=== PATIENT | female | born 2000 | race Caucasian/White ===

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

== ENCOUNTER → 2020-01-17 | Outpatient (CLI) | payer MEDICAID ==
[~2020-01-17] MED LIST changes: +KETO10TA PO; +NITR-65 PO; +ONDA4TAB11 PO; +PHEN-640 PO
--- NOTE | 2020-01-17 14:05 | Diagnostic Imaging Report ---
INDICATION: Abdominal pain. COMPARISON: CT dated 12/28/2019. FINDINGS: Single supine radiographic view of the abdomen was obtained and demonstrates nondistended loops of small bowel. There is no large collection of free peritoneal air. Moderate air and stool are seen scattered throughout the colon. No unexpected extraosseous calcifications or radiopaque foreign bodies are seen. Bony structures show no gross acute abnormalities. IMPRESSION: 1. Nonobstructed small bowel gas pattern. 2. Moderate colonic air and stool. Please correlate for constipation. Dictated by: Dictated on workstation # [id number]
== END ==
LOC: RAD 13:37
PROVIDERS: ATTEND Family Medicine
DX: R10.9 Unspecified abdominal pain (principal)
CPT/HCPCS: 74018

== ENCOUNTER → 2020-02-10 | Outpatient (CLI) | payer MEDICAID ==
[2020-02-10 10:13] LABS: BILIRUBIN,URINE NEGATIVE (NEGATIVE); CLARITY,URINE CLEAR; COLOR,URINE YELLOW; GLUCOSE, URINE (UA) NEGATIVE (NEGATIVE); KETONES,URINE NEGATIVE (NEGATIVE); LEUKOCYTE ESTERASE ,URINE NEGATIVE (NEGATIVE); NITRITE,URINE NEGATIVE (NEGATIVE); PH,URINE 6.5 (5-9); PROTEIN,URINE NEGATIVE (NEGATIVE)
[2020-02-10 10:33] LABS: AMORPHOUS SEDIMENT,UR LARGE AMOR URATES /LPF; BACTERIA,URINE TRACE /HPF; RBC,URINE 0-2 /HPF; WBC,URINE RARE /HPF
--- NOTE | 2020-02-10 10:33 | Diagnostic Imaging Report ---
PROCEDURE: US Gallbladder. TECHNIQUE: Multiple real-time grayscale images were obtained over the right upper quadrant in various projections. INDICATION: Nausea and vomiting 2 months duration. FINDINGS: The gallbladder is nondilated, its wall not thickened. No pericholecystic fluid and the Mike sign was negative. Near the gallbladder neck, there is a small 3 mm hyperechoic focus adherent to the wall without shadowing. This is probably a tiny polyp or small aggregate of sludge. Gallbladder otherwise normal. No intra or extrahepatic bile duct dilatation. Visualized aorta and IVC normal. The right kidney unobstructed and normal. Liver parenchyma unremarkable. Portal vein patent. IMPRESSION: No visualized stone, there may be a small amount of sludge in the gallbladder versus tiny polyp. No definite stone or acute cholecystitis and no bile duct dilatation, ascites or right-sided hydronephrosis. Dictated by: Dictated on workstation # [id number]
== END ==
LOC: RAD 09:04
PROVIDERS: ATTEND Surgery
DX: K85.90 Acute pancreatitis without necrosis or infection, unspecified (principal); Z87.440 Personal history of urinary (tract) infections
CPT/HCPCS: 76705; 81000

== ENCOUNTER 2020-02-15 13:33 | Outpatient (RCR) | payer MEDICAID ==
[2020-03-01] MEDS ORDERED: BUSP5TAB59 PO (14:24)
[2020-03-01] MEDS ORDERED: ALPR0.5T7 PO (14:24)
[2020-03-01] MEDS ORDERED: DESO1TAB68 PO (14:24)
[2020-03-07] MEDS ORDERED: HYDR-4226 PO (09:06)
== END 2020-05-14 | disposition home or self-care (01) ==
LOC: LAB 13:33
PROVIDERS: ATTEND Surgery
DX: R19.7 Diarrhea, unspecified (principal)
CPT/HCPCS: 87015; 87045; 87046; 87324; 87328; 87329; 87449; 87899

== ENCOUNTER 2020-02-24 21:45 | Emergency (ER) | payer MEDICAID ==
[~2020-02-24] VITALS: Ht 172.7 cm; Wt 55.3 kg
[2020-02-24] MEDS ORDERED: fentaNYL INJECTION 100 MCG/2 ML AMP ONE (21:53)
[2020-02-24] MEDS ORDERED: HYOSCYAMINE 0.125 MG (LEVSIN) TAB PO ONE (22:00)
[2020-02-24] MEDS ORDERED: KETOROLAC 30 MG/ML VIAL IVP ONE (22:00)
[2020-02-24] MEDS ORDERED: fentaNYL INJECTION 100 MCG/2 ML AMP IVP ONE (22:00)
--- NOTE | 2020-02-24 22:01 | ED Abdominal Pain ---
General Stated Complaint: ABD PAIN Exam Limitations: No Limitations History of Present Illness Date Seen by Provider: Feb 24, 2020 Time Seen by Provider: 22:00 Initial Comments To ER with epigastric abdominal pain. This began a few months ago, she has had an MRI and ultrasound the gallbladder. She has an appointment with Dr. Lassiter on of this upcoming week to schedule surgery. Tonight after eating pizza about 2 hours ago the pain became worse. No fevers chills or vomiting. When discussing the eating of pizza she states "I know I'm not supposed to" Timing/Duration: Getting Worse, Intermittent Severity/Quality: Moderate Activities at Onset: None Associated Symptoms: No Fever/Chills, No Nausea/Vomiting Allergies and Home Medications Allergies Coded Allergies: Penicillins (Verified Allergy, Unknown, 07/21/16) red dye (Verified Allergy, Unknown, 03/20/15) Home Medications Ketorolac Tromethamine 10 Mg Tablet, 10 MG PO Q6H Prescribed by: MIR GUERRIER on 12/28/19448 Nitrofurantoin Monohyd/M-Cryst 100 Mg Capsule, 1 TAB PO BID Prescribed by: MIR GUERRIER on 12/28/19448 Ondansetron 4 Mg Tab.rapdis, 4 MG PO Q4H Prescribed by: MIR GUERRIER on 12/28/19448 Phenazopyridine HCl 200 Mg Tablet, 1 TAB PO TID Prescribed by: MIR GUERRIER on 12/28/19448 Patient Home Medication List Home Medication List Reviewed: Yes Review of Systems Review of Systems Constitutional: see HPI; No chills, No fever EENTM: No Symptoms Reported Respiratory: No Symptoms Reported Gastrointestinal: See HPI, Abdominal Pain Genitourinary: No Symptoms Reported Musculoskeletal: no symptoms reported Skin: no symptoms reported Psychiatric/Neurological: No Symptoms Reported Endocrine: No Symptoms Reported Past Hmjnpwp-Flnigw-Ovwuss Hx Patient Social History 2nd Hand Smoke Exposure: No Recent Foreign Travel: No Contact w/Someone Who Travel: No Recent Hopitalizations: No Immunizations Up To Date Tetanus Booster (TDap): Less than 5yrs PED Vaccines UTD: Yes Seasonal Allergies Seasonal Allergies: No Past Medical History Surgeries: Yes Tonsillectomy Respiratory: No Cardiac: No 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 0oz. 54.957545lc; 20.00 BMI Method:Actual General Appearance: WD/WN, no apparent distress, other (alert and oriented, rates pain at 8 out of 10) HEENT: PERRL/EOMI, normal ENT inspection Respiratory: no respiratory distress, no accessory muscle use Gastrointestinal: normal bowel sounds, soft, tenderness Extremities: normal range of motion, non-tender Neurologic/Psychiatric: alert, normal mood/affect, oriented x 3 Skin: normal color, warm/dry Progress/Results/Core Measures Results/Orders My Orders Orders - CARON HAAS APRN Cbc With Automated Diff (02/24/20 21:47) Comprehensive Metabolic Panel (02/24/20 21:47) Ed Iv/Invasive Line Start (02/24/20 21:47) Ketorolac Injection (Toradol Injection) (02/24/20 22:00) Hyoscyamine Sl Tablet (Levsin Sl Tablet) (02/24/20 22:00) Fentanyl Injection (Sublimaze Injection (02/24/20 22:00) Departure Impression Primary Impression: Symptomatic cholelithiasis Disposition: HOME, SELF-CARE Condition: Stable Departure-Patient Inst. Decision time for Depature: 22:04 Referrals: ELENI BUTLER MD (PCP/Family) Primary Care Physician Patient Instructions: Gallbladder Diet, Gallstones (DC) Add. Discharge Instructions: 1. Follow the gallbladder diet printed out for you. Keep your appointment with Dr. Lassiter. Return to ER for any concerns. Copy Copies To 1: NASIM LASSITER PETER J APRN Feb 24, 2020 22:01
[2020-02-24 22:02] LABS: BASOPHILS # (AUTO) 0.1 10^3/uL (0.0-0.1); BASOPHILS % (AUTO) 1 % (0-10); EOSINOPHILS # (AUTO) 0.2 10^3/uL (0.0-0.3); EOSINOPHILS % (AUTO) 2 % (0-10); HEMATOCRIT 40 % (35-52); HEMOGLOBIN 13.5 g/dL (11.5-16.0); LYMPHOCYTES # (AUTO) 4.1 10^3/uL (1.0-4.0); LYMPHOCYTES % (AUTO) 48 % (12-44); MEAN CORPUSCULAR HEMOGLOBIN 30 pg (25-34); MEAN CORPUSCULAR HGB CONC 34 g/dL (32-36); MEAN CORPUSCULAR VOLUME 88 fL (80-99); MEAN PLATELET VOLUME 9.5 fL (9.0-12.2); MONOCYTES # (AUTO) 0.5 10^3/uL (0.0-1.0); MONOCYTES % (AUTO) 6 % (0-12); NEUTROPHILS # (AUTO) 3.7 10^3/uL (1.8-7.8); NEUTROPHILS % (AUTO) 43 % (42-75); PLATELET COUNT 222 10^3/uL (130-400); WHITE BLOOD COUNT 8.6 10^3/uL (4.3-11.0)
[2020-02-24] MEDS ORDERED: RX-HYOSCYAMINE 0.125 MG SL (LEVSIN) PPK#6 SL STA (22:06)
[2020-02-24 22:12] LABS: ALBUMIN 4.1 GM/DL (3.2-4.5)
[2020-02-24 22:13] LABS: CHLORIDE 108 MMOL/L (98-107); POTASSIUM 3.8 MMOL/L (3.6-5.0); SODIUM 139 MMOL/L (135-145)
[2020-02-24 22:15] LABS: GLUCOSE 110 MG/DL (70-105); TOTAL PROTEIN 6.8 GM/DL (6.4-8.2)
[2020-02-24] MEDS ORDERED: RX-HYDROCODONE/APAP 5/325 MG #4 TAB PK PO PRN (22:15)
[2020-02-24 22:16] LABS: CARBON DIOXIDE 22 MMOL/L (21-32)
[2020-02-24 22:17] LABS: BILIRUBIN,TOTAL 0.2 MG/DL (0.1-1.0)
[2020-02-24 22:18] LABS: ALKALINE PHOSPHATASE 53 U/L (40-136)
[2020-02-24 22:19] LABS: CREATININE SERUM 0.84 MG/DL (0.60-1.30); GFR ESTIMATED > 60
[2020-02-24 22:20] LABS: BUN/CREATININE RATIO 13
[2020-02-24 22:21] LABS: ALANINE AMINOTRANSFERASE 12 U/L (0-55)
[2020-02-24 23:13] VITALS: BP 115/56
== END 2020-02-24 23:05 | disposition home or self-care (01) ==
LOC: EDUNIT# 21:45 → ER 21:47
DX: K80.20 Calculus of gallbladder without cholecystitis without obstruction (principal); Z88.0 Allergy status to penicillin; Z91.041 Radiographic dye allergy status
CPT/HCPCS: 36415; 80053; 85025; 99283

== ENCOUNTER 2020-03-05 05:35 | Outpatient (RCR) | payer MEDICAID ==
[~2020-03-05] VITALS: Ht 170 cm; Wt 56.3 kg
[~2020-03-05 05:35] MED LIST changes: +BUSP5TAB59 PO; +DESO1TAB68 PO
== END 2020-03-05 14:44 | disposition home or self-care (01) ==
LOC: PREOP 05:35
PROVIDERS: ATTEND Surgery
DX: Z01.812 Encounter for preprocedural laboratory examination (principal); Z20.828 Contact with and (suspected) exposure to other viral communicable diseases
CPT/HCPCS: 87635

== ENCOUNTER 2020-03-07 07:09 | Day surgery (SDC) | payer MEDICAID ==
[2020-03-07] VITALS (12 sets, daily range): BP systolic 109–137; BP diastolic 70–98
[~2020-03-07] VITALS: Ht 170 cm; Wt 57.0 kg
[2020-03-07] MEDS ORDERED: BUP/EPI 0.5% 1:200,000 (SENSORCAINE) 30 ML VIAL ONE (07:25)
[2020-03-07] MEDS ORDERED: IOPAMIDOL 61% 30 ML (ISOVUE 300) VIAL ONE (07:25)
[2020-03-07] MEDS ORDERED: ROCURONIUM 10 MG/ML 5 ML SYRINGE IV ONE (07:30)
[2020-03-07] MEDS ORDERED: LIDOCAINE PF 2% 5 ML (XYLOCAINE) VIAL ONE (07:30)
[2020-03-07] MEDS ORDERED: ONDANSETRON 4 MG/2 ML (SDV) Z0FRAN ONE (07:30)
[2020-03-07] MEDS ORDERED: proPOfol 200 MG/20 ML (DIPRIVAN) VIAL IV ONE (07:30)
[2020-03-07] MEDS ORDERED: fentaNYL INJECTION 100 MCG/2 ML AMP ONE ×2 (07:31→08:33)
[2020-03-07] MEDS ORDERED: MIDAZOLAM 2 MG/2 ML (VERSED) VIAL ONE (07:31)
[2020-03-07] MEDS ORDERED: GLYCOPYRROLATE 0.2 MG/ML (ROBINUL) 2 ML VIAL ONE (07:32)
[2020-03-07] MEDS ORDERED: NEOSTIGMINE 3 MG/3 ML VIAL ONE (07:32)
[2020-03-07] MEDS ORDERED: SEVOFLURANE (ULTANE) 15 ML INHAL SOLN ONE (07:32)
[2020-03-07] MEDS ORDERED: LACTATED RINGERS 1,000 ML IV PRN (07:39)
[2020-03-07] MEDS ORDERED: CLINDAMYCIN 600 MG/50 ML IVPB 50 ML IV ONE (07:45)
--- NOTE | 2020-03-07 08:17 | Progress Note-Pre Operative ---
Pre-Operative Progress Note H&P Reviewed The H&P was reviewed, patient examined and no changes noted. Time Seen by Provider: 08:11 Date H&P Reviewed: Mar 07, 2020 Time H&P Reviewed: 08:12 Pre-Operative Diagnosis: biliary dyskinesia NASIM LASSITER DO Mar 07, 2020 08:17
--- NOTE | 2020-03-07 09:05 | Progress Note-Post Operative ---
Post-Operative Progess Note Surgeon (s)/Vehicle Controls Engineer (s) Surgeon NASIM LASSITER DO Vehicle Controls Engineer: Daniel Pre-Operative Diagnosis Sludge vs polyp Post-Operative Diagnosis same pending path Procedure & Operative Findings Date of Procedure 03/07/20 Procedure Performed/Findings PROCEDURE: Laparoscopic cholecystectomy with intraoperative cholangiogram. COMPLICATIONS: None. PROCEDURE: The patient was taken to the operating suite and was prepped and draped in sterile fashion. A surgical pause was performed. Just inferior to the umbilicus, a 12 mm incision was made. Dissection was taken down to the fascia, which was then scored and grasped with a Davey and the abdomen was then entered. A 0 Vicryl suture was placed in a [id number] fashion and a Gonzalez trocar was placed and secured. Pneumoperitoneum was achieved. A 5mm trochar place in the subxyphoid and 2 in the right lower quadrant. The gallbladder was then grasped and elevated. The cystic duct, and cystic artery were then dissected out. Clip was placed on the distal portion of the cystic duct which was then partially transected. An arrow catheter was inserted into the duct. The cholangiogram was then performed. No filing defects and contrast made its way into the duodenum. Catheter removed. Clips were placed on proximal portion of the cystic duct and then the duct was then transected. Clips were placed along the proximal and distal portion of the cystic artery which was then transected. Hook cautery was used to dissect the gallbladder from the gallbladder fossa achieving hemostasis. The gallbladder was placed in an Endobag and removed through the 12 mm trocar site. The abdomen was then reinspected. Copious amounts of irrigation were used to irrigate the abdomen and there were no signs of active bleeding. Hemostasis had been achieved. The 12 mm fascial defect was then closed with 0 Vicryl suture that had been placed in a [id number] fashion. The abdomen was then desufflated, the trocars were removed. The abdomen was then washed and dried. The skin was then closed using 4-0 Monocryl in a subcuticular fashion. The abdomen was washed and dried and Skin Affix was place over incisions. Patient tolerated the procedure well without any complications and was taken to the recovery room in stable condition. Anesthesia Type GET Estimated Blood Loss Estimated blood loss (mL): scant Specimens/Packing Specimens Removed GB and contents NASIM LASSITER DO Mar 07, 2020 09:05
[2020-03-07] MEDS ORDERED: HYDR-4226 PO (09:06)
--- NOTE | 2020-03-07 09:07 | Discharge Inst-Surgical ---
Discharge Inst-Surgical Depart Medication/Instructions New, Converted or Re-Newed RX: RX Given to Pt/Family Patient Instructions Follow up Appt: Make appointment for 1 week. [phone] Instructions: No lifting greater than 20 pounds. No strenuous activity. May shower in 24 hours, no tub bath or soaking. Use incentive spirometer at home as directed. No Smoking Skin/Wound Care: May remove bandages in am. You need to leave the Dermabond on incision it will fall off on it's own. Symptoms to Report: Appetite Changes, Extremity Discoloration, Numbness/Tingling, Swelling Increased, Bleeding Excessive, Eyesight Changes, Pain Increased, Urine Color Change, Constipation(Persistent), Fever over 101 degree F, Pain/Pressure in chest, Urinating Difficulty, Cough Up/Vomit Blood, Heart Beat Irreg/Pounding, Pain/Pressure in jaw, Cramps in feet or legs, Lightheadedness, Pain/Pressure in shoulder, Diarrhea(Persistent), Memory Changes Suddenly, Questions/Concerns, Weight gain consecutive days, Dizziness/Fainting, Nausea/Vomiting, Shortness of Breath, Weight gain over 2 pounds If questions or concerns contact your physician Or seek help at emergency department. Activity Activity as Tolerated: Yes Activity Instructions: Avoid Pulling & Pushing Driving Instructions: No Driving/Refer to Diet Discharge Diet: Avoid Fatty Foods, Low Fat/Low Cholesterol Diet After 24 Hours: Clear Liquid if Nauseous If Any Problems/Questions/Issu: Contact Your Physician, Go to Emergency Room Skin/Wound Care Infection Signs and Symptoms: Increased Redness, Foul Odor of Wound, Increased Drainage, Skin Itchy or Has a Rash, Increased Swelling, Temperature Above 101 F Wound Care Comment: heating pad to shoulder or neck tonight for pain Bathing Instructions: Shower Stitches/[place]/Dermabond Dis: Dermabond Ice Pack: Ice On and Off Site NASIM LASSITER DO Mar 07, 2020 09:07
[2020-03-07] MEDS ORDERED: MEPERIDINE (DEMEROL) INJ 50 MG/ML IVP ONE (09:30)
[2020-03-07] MEDS ORDERED: fentaNYL INJECTION 100 MCG/2 ML AMP IVP ONE (09:30)
[2020-03-07] MEDS ORDERED: morphine INJ 10 MG/ML 1ML (SYR OR VIAL) IVP ONE (09:30)
[2020-03-07] MEDS ORDERED: ONDANSETRON 4 MG/2 ML (SDV) Z0FRAN IVP PRN (09:30)
--- NOTE | 2020-03-07 09:34 | Diagnostic Imaging Report ---
INDICATION: Fluoroscopy for intraoperative cholangiogram. TECHNIQUE/FINDINGS: Fluoroscopy was performed in the OR during intraoperative cholangiogram. 9 seconds of fluoroscopic time was utilized. Images demonstrate contrast being injected via the cystic duct remnant. The intrahepatic and extrahepatic bile ducts appear to be of normal caliber. No filling defects are seen to suggest retained stone. Contrast flows into the duodenum. IMPRESSION: Fluoroscopy during intraoperative cholangiogram. Dictated by: Dictated on workstation # [id number]
[2020-03-07] MEDS ORDERED: morphine INJ 10 MG/ML 1ML (SYR OR VIAL) ONE (09:36)
[2020-03-07] MEDS ORDERED: MEPERIDINE (DEMEROL) INJ 50 MG/ML ONE (09:56)
--- NOTE | 2020-03-07 11:16 | Anesthesia-General Post-Op ---
General Patient Condition Mental Status/LOC: Same as Preop Cardiovascular: Satisfactory Nausea/Vomiting: Absent Respiratory: Satisfactory Pain: Controlled Complications: Absent Post Op Complications Complications None Follow Up Care/Instructions Patient Instructions None needed. Anesthesia/Patient Condition Patient Condition Patient is doing well, no complaints, stable vital signs, no apparent adverse anesthesia problems. No complications reported per nursing. KATHI JEAN CRNA Mar 07, 2020 11:16
--- NOTE | 2020-03-07 12:16 | NUR ---
PER ROMAIN LIRIANO, PT RECIEVED A SECOND BAG OF IV FLUIDS AND HAD AN INTAKE OF AN ADDITIONAL 600 ML
== END 2020-03-07 12:00 | disposition home or self-care (01) ==
LOC: SDC 07:09
PROVIDERS: ATTEND Surgery
DX: K81.1 Chronic cholecystitis (principal); F41.9 Anxiety disorder, unspecified; F32.9 Major depressive disorder, single episode, unspecified; F95.2 Tourette's disorder; G47.9 Sleep disorder, unspecified; R19.7 Diarrhea, unspecified; K21.9 Gastro-esophageal reflux disease without esophagitis; Q80.0 Ichthyosis vulgaris; F17.290 Nicotine dependence, other tobacco product, uncomplicated; Z79.899 Other long term (current) drug therapy; Z11.2 Encounter for screening for other bacterial diseases; Z87.19 Personal history of other diseases of the digestive system; Z88.0 Allergy status to penicillin; Z88.8 Allergy status to other drugs, medicaments and biological substances; Z91.048 Other nonmedicinal substance allergy status
CPT/HCPCS: 76000; 84703; 87081; 88304

== ENCOUNTER 2020-05-09 07:00 | Emergency (ER) | payer MEDICAID ==
[~2020-05-09] VITALS: Ht 160 cm; Wt 54.0 kg
[~2020-05-09 07:00] MED LIST changes: +HYDR-4226 PO
[2020-05-09] MEDS ORDERED: ONDANSETRON 4 MG/2 ML (SDV) Z0FRAN IVP ONE (07:30)
--- NOTE | 2020-05-09 07:35 | ED Fall/Injury ---
General Chief Complaint: Lower Extremity Stated Complaint: R LEG,HIP PAIN, N/V, Nursing Triage Note: ARRIVED VIA AMB TO ROOM 06 WITH COMPLAINTS OF RIGHT LEG, HIP, AND LOWER BACK PAIN AFTER FALLING LAST NIGHT. STATES SHE IS ALSO HAVING SOME NAUSEA WITH THE PAIN. Source: patient Exam Limitations: no limitations History of Present Illness Date Seen by Provider: May 09, 2020 Time Seen by Provider: 07:20 Initial Comments This 19-year-old young lady presents to the emergency room with complaints of pain on the right chest, abdomen, and hip related to a fall last night. She fell off of a piece of gymnastics equipment from about 5 feet off the floor and landed on concrete. Her right hip took the brunt of the force. She denies any head injury or loss of consciousness. She has vomited twice since the incident and complains of persistent significant pain. She is ambulatory. On exam she has tenderness over the right anterior chest wall, the right lower quadrant, and the right iliac crest region. She also has some minor tenderness on the posterior lateral knee region. She has exacerbation of pain with coughing, sneezing, or deep breathing. Movement also is painful. Patient had a cholecystectomy in February. Allergies and Home Medications Allergies Coded Allergies: diphenhydramine (Verified Allergy, Mild, N/V, 03/07/20) Penicillins (Verified Allergy, Unknown, 03/07/20) red dye (Verified Allergy, Unknown, 03/07/20) Home Medications Alprazolam 0.5 Mg Tablet, 0.5 MG PO PRN PRN for ANXIETY, (Reported) Buspirone HCl 5 Mg Tablet, 5 MG PO DAILY, (Reported) Desogestrel-Ethinyl Estradiol 1 Each Tablet, 1 EACH PO DAILY, (Reported) Patient Home Medication List Home Medication List Reviewed: Yes Review of Systems Review of Systems Constitutional: no symptoms reported Eyes: No Symptoms Reported Ears, Nose, Mouth, Throat: no symptoms reported Respiratory: see HPI Cardiovascular: no symptoms reported Gastrointestinal: see HPI Genitourinary: no symptoms reported : No LMP: Apr 18, 2020 Musculoskeletal: see HPI Skin: other (Contusion over right iliac crest) Psychiatric/Neurological: No Symptoms Reported Past Sjzchag-Bvaemn-Zpsfta Hx Past Med/Social Hx: Reviewed Nursing Past Med/Soc Hx Patient Social History Alcohol Use: Rarely Uses Recreational Drug Use: No Smoking Status: Never a Smoker Type Used: Electronic/Vapor 2nd Hand Smoke Exposure: No Recent Foreign Travel: No Contact w/Someone Who Travel: No Recent Infectious Disease Expo: No Recent Hopitalizations: No Immunizations Up To Date Tetanus Booster (TDap): Less than 5yrs PED Vaccines UTD: Yes Seasonal Allergies Seasonal Allergies: Yes Past Medical History Surgeries: Yes Adenoidectomy, Gallbladder, Tonsillectomy Respiratory: No Cardiac: No 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) Headaches /Migraines Reproductive Disorders: No Female Reproductive Disorders: Ovarian Cyst Sexually Transmitted Disease: No HIV/AIDS: No Genitourinary: Yes Bladder Infection Gastrointestinal: Yes (N/V) Gastroesophageal Reflux, Chronic Constipation, Chronic Diarrhea, Gall Bladder Disease Musculoskeletal: No Endocrine: No HEENT: Yes (GLASSES/CONTACTS) Tonsilitis Cancer: No Psychosocial: No Sleep Difficulties, Anxiety Integumentary: Yes (ICHTHYOSIS VULGARIS) Blood Disorders: No Adverse Reaction/Blood Tranf: No (N/A) Family Medical History No Pertinent Family Hx Physical Exam Vital Signs Vital Signs - First Documented 05/09/20 07:10 Temp 37.4 Pulse 82 Resp 16 B/P (MAP) 119/83 O2 Delivery Room Air Capillary Refill : Height, Weight, BMI Height: 5'6.00" Weight: 121lbs. 0oz. 54.510820fn; 21.00 BMI Method:Actual General Appearance: WD/WN, no apparent distress, other (Mildly anxious) HEENT: PERRL/EOMI, normal ENT inspection Neck: normal inspection Cardiovascular: regular rate, rhythm, no edema, no murmur Respiratory: lungs clear, normal breath sounds, no respiratory distress, other (Anterior right lower chest wall tender to palpation) Gastrointestinal: normal bowel sounds, soft, tenderness (Right lower quadrant), other (Bruising/abrasion over the right anterior iliac crest) Extremities: no pedal edema, other (Tenderness over the right anterior hip. Mild tenderness over the posterior lateral proximal right knee) Neurologic/Psychiatric: stable helper II-XII nml as tested, no motor/sensory deficits, alert, normal mood/affect, oriented x 3, other (eye and vocal tics related to Tourette's) Skin: normal color, warm/dry, ecchymosis [place] Coma Score Best Eye Response: (4) Open Spontaneously Best Verbal Response: (5) Oriented Best Motor Response: (6) Obeys Commands [place] Total: 15 Progress/Results/Core Measures Results/Orders Lab Results Laboratory Tests Test 05/09/20 07:33 05/09/20 07:42 Range/Units White Blood Count 9.4 4.3-11.0 10^3/uL Red Blood Count 4.73 3.80-5.11 10^6/uL Hemoglobin 14.4 11.5-16.0 g/dL Hematocrit 42 35-52 % Mean Corpuscular Volume 89 80-99 fL Mean Corpuscular Hemoglobin 30 25-34 pg Mean Corpuscular Hemoglobin Concent 34 32-36 g/dL Red Cell Distribution Width 11.9 10.0-14.5 % Platelet Count 202 130-400 10^3/uL Mean Platelet Volume 10.0 9.0-12.2 fL Immature Granulocyte % (Auto) 0 % Neutrophils (%) (Auto) 29 L 42-75 % Lymphocytes (%) (Auto) 60 H 12-44 % Monocytes (%) (Auto) 6 0-12 % Eosinophils (%) (Auto) 3 0-10 % Basophils (%) (Auto) 1 0-10 % Neutrophils # (Auto) 2.8 1.8-7.8 10^3/uL Lymphocytes # (Auto) 5.6 H 1.0-4.0 10^3/uL Monocytes # (Auto) 0.6 0.0-1.0 10^3/uL Eosinophils # (Auto) 0.3 0.0-0.3 10^3/uL Basophils # (Auto) 0.1 0.0-0.1 10^3/uL Immature Granulocyte # (Auto) 0.0 0.0-0.1 10^3/uL Neutrophils % (Manual) 28 % Lymphocytes % (Manual) 55 % Monocytes % (Manual) 4 % Eosinophils % (Manual) 2 % Basophils % (Manual) 0 % Band Neutrophils 1 % Reactive Lymphocytes 10 % Blood Morphology Comment NORMAL Sodium Level 138 135-145 MMOL/L Potassium Level 3.4 L 3.6-5.0 MMOL/L Chloride Level 105 98-107 MMOL/L Carbon Dioxide Level 25 21-32 MMOL/L Anion Gap 8 5-14 MMOL/L Blood Urea Nitrogen 9 7-18 MG/DL Creatinine 0.81 0.60-1.30 MG/DL Estimat Glomerular Filtration Rate > 60 BUN/Creatinine Ratio 11 Glucose Level 98 70-105 MG/DL Calcium Level 8.6 8.5-10.1 MG/DL Corrected Calcium 8.4 L 8.5-10.1 MG/DL Total Bilirubin 0.4 0.1-1.0 MG/DL Aspartate Amino Transf (AST/SGOT) 21 5-34 U/L Alanine Aminotransferase (ALT/SGPT) 21 0-55 U/L Alkaline Phosphatase 72 40-136 U/L Total Protein 6.7 6.4-8.2 GM/DL Albumin 4.2 3.2-4.5 GM/DL Serum Test, Qualitative NEGATIVE NEGATIVE Urine Color YELLOW Urine Clarity CLEAR Urine pH 7.0 5-9 Urine Specific [place] 1.010 L 1.016-1.022 Urine Protein NEGATIVE NEGATIVE Urine Glucose (UA) NEGATIVE NEGATIVE Urine Ketones NEGATIVE NEGATIVE Urine Nitrite NEGATIVE NEGATIVE Urine Bilirubin NEGATIVE NEGATIVE Urine Urobilinogen 0.2 < = 1.0 MG/DL Urine Leukocyte Esterase NEGATIVE NEGATIVE Urine RBC (Auto) NEGATIVE NEGATIVE Urine RBC RARE /HPF Urine WBC RARE /HPF Urine Squamous Epithelial Cells 0-2 /HPF Urine Crystals NONE /LPF Urine Bacteria TRACE /HPF Urine Casts NONE /LPF Urine Mucus NEGATIVE /LPF Urine Culture Indicated NO My Orders Orders - CONNOR BUTTERFIELD MD Ed Iv/Invasive Line Start (05/09/20 07:30) Cbc With Automated Diff (05/09/20 07:30) Comprehensive Metabolic Panel (05/09/20 07:30) Hcg,Qualitative Serum (05/09/20 07:30) Ua Culture If Indicated (05/09/20 07:30) Ondansetron Injection (Zofran Injectio (05/09/20 07:30) Ct Chest/Abdomen/Pelvis W (05/09/20 07:32) Iohexol Injection (Omnipaque 350 Mg/Ml 1 (05/09/20 07:45) Received Contrast (Hold Metformin- Contr (05/09/20 07:45) Sodium Chloride Flush (Catheter Flush Sy (05/09/20 07:45) Ns (Ivpb) (Sodium Chloride 0.9% Ivpb Bag (05/09/20 07:45) Fentanyl Injection (Sublimaze Injection (05/09/20 07:45) Manual Differential (05/09/20 07:33) Medications Given in ED Current Medications Medications Dose Ordered Sig/Andre Route Start Time Stop Time Status Last Admin Dose Admin Fentanyl Citrate 50 mcg ONCE ONCE IVP 05/09/20 07:45 05/09/20 07:46 DC 05/09/20 07:42 50 MCG Iohexol 100 ml ONCE ONCE IV 05/09/20 07:45 05/09/20 07:46 DC 05/09/20 08:07 72 ML Ondansetron HCl 4 mg ONCE ONCE IVP 05/09/20 07:30 05/09/20 07:33 DC 05/09/20 07:41 4 MG Sodium Chloride 10 ml NEEDED PRN IV 05/09/20 07:45 05/09/20 08:07 10 ML Sodium Chloride 100 ml ONCE ONCE IV 05/09/20 07:45 05/09/20 07:46 DC 05/09/20 08:07 80 ML Vital Signs/I&O 05/09/20 07:10 Temp 37.4 Pulse 82 Resp 16 B/P (MAP) 119/83 O2 Delivery Room Air Progress Progress Note #1: Time: 07:40 Progress Note Patient was seen and examined. I am concerned about the mechanism of injury with a fall from 5 feet onto concrete and significant pain associated with vomiting. We discussed the risks and benefits of CT scan including radiation exposure and the possibility of identifying serious injury. Patient is agreeable to proceeding with CT scan. She is receiving fentanyl and Zofran for symptom control. Progress Note #2: Time: 08:43 Progress Note No serious injuries were identified on his CT scan. There was an incidental finding of enhancing lesion on the liver which was not seen on prior imaging. This is likely a hemangioma but should be followed up with a nonemergent ultras ound in the outpatient setting. I did discuss this with the patient. Toradol was ordered to be given prior to discharge for further pain control. Diagnostic Imaging Diagonstic Imaging: CT Plain Films/CT/US/NM/MRI: chest, abdomen, pelvis Comments CT chest, abdomen and pelvis viewed by me and report reviewed. See report below: NAME: MILLIE CHOPRA MED REC#: [id number] PT STATUS: REG ER : 2000 PHYSICIAN: CONNOR BUTTERFIELD MD ADMIT DATE: 05/09/20/ER Draft Date of Exam:05/09/20 CT CHEST/ABDOMEN/PELVIS W PROCEDURE: CT chest, abdomen, and pelvis with contrast. TECHNIQUE: Multiple contiguous axial images were obtained through the chest, abdomen, and pelvis after the administration of intravenous contrast. Auto Exposure Controls were utilized during the CT exam to meet ALARA standards for radiation dose reduction. INDICATION: Fell, chest, abdomen and pelvis pain. FINDINGS: The previous CT abdomen/pelvis without contrast exam of 12/28/2019 raise the question of cystitis. There is also small amount of nonspecific free fluid in the pelvis. On this exam, there is again a similar amount of free fluid in the pelvis. This finding is nonspecific and could be physiologic in nature. The possibility is related to recent rupture of an ovarian cyst should also be considered. If further evaluation is desired, then ultrasound would be recommended. The uterus does not appear to be enlarged. The urinary bladder is not fully distended but shows no definite abnormality. The appendix was not well-visualized but there are no indirect signs of acute appendicitis. There are a few fluid-filled segments of small bowel present. This appearance is nonspecific but could be related to a mild ileus perhaps secondary to enteritis. On the immediate postcontrast series, there is a 1.7 x 1.8 x 2.2 cm area of enhancement near the gallbladder fossa in segment IV of the liver. This is a new finding when compared to the prior CT abdomen/pelvis exam with contrast performed on 04/15/2016. This area of enhancement is not evident on the delayed series and I suspect is related to a benign cavernous hemangioma. If further study is desired, then ultrasound would be recommended. The spleen, pancreas, adrenals, kidneys, aorta and inferior vena cava and portal vein show no sign of an acute abnormality. In the interval since the prior exam, the patient has undergone a cholecystectomy. The stomach is filled with particulate matter and consequently difficult to assess. The images through the thorax show the heart size is within normal limits. The lungs are clear. There is no evidence for contusion or pneumothorax and there is no sign of pneumonia or pleural effusion. The aorta is not abnormally dilated and there is no evidence for dissection. The pulmonary arteries were not fully opacified and consequently difficult to assess for pulmonary embolus. There is no definite defect to suggest a pulmonary embolus. There is no mediastinal or hilar adenopathy. The thyroid gland where visualized is unremarkable. There is no obvious breast mass. The bone windows show no evidence for fracture or for destructive lesion. In particular, there is no sign of an acute bony abnormality of the right hip. IMPRESSION: 1. There is a small amount of nonspecific free fluid in the pelvis. Whether this finding is physiologic in nature or whether this is related to recent rupture of a small ovarian cysts is not certain. If further evaluation is desired, then ultrasound of the pelvis would be recommended. 2. The fluid in the small bowel could be secondary to a mild ileus perhaps related to enteritis. Clinical follow-up is recommended. 3. There is no acute abnormality of the chest, abdomen or pelvis noted otherwise. 4. The enhancing lesion within segment IV of the liver is most likely a benign process such as cavernous hemangioma. If further study is desired, then ultrasound would be recommended. 5. There has been an interval cholecystectomy. 6. These results were discussed Dr. Connor Butterfield. Dictated on workstation # [id number] Dict: 05/09/20815 Trans: 05/09/2036 [id number] Interpreted by: ADRIÁN THORNE MD Departure Impression Primary Impression: Other fall from one level to another as cause of accidental injury at sports or athletics area as place of occurrence Qualified Codes: W17.89XA - Other fall from one level to another, initial encounter; Y92.39 - Other specified sports and athletic area as the place of occurrence of the external cause Additional Impressions: Right sided abdominal pain Vomiting Qualified Codes: R11.2 - Nausea with vomiting, unspecified Chest wall pain Liver lesion Disposition: 01 HOME, SELF-CARE Condition: Improved Departure-Patient Inst. Decision time for Depature: 08:30 Referrals: ELENI BUTLER MD (PCP/Family) Primary Care Physician Patient Instructions: Contusion (DC) Add. Discharge Instructions: No fractures or serious internal injuries were identified. You may treat your pain with ibuprofen up to 600 mg every 6 hours as needed and/or Tylenol (acetaminophen) up to 1000 mg every 6 hours as needed. Icing and 20-minute intervals may also be helpful. Gradually increase level of activity as pain allows. Stay well-hydrated. Call or return to care if you have any further questions or concerns. You did have an abnormality seen on your liver which is likely a harmless h emangioma. However, the radiologist who read your CT is recommending you have a follow-up ultrasound performed nonemergently on an outpatient basis. Please discuss this with Dr. Butler. All discharge instructions reviewed with patient and/or family. Voiced understanding. Copy Copies To 1: ELENI BUTLER MD, JOSHUA T MD May 09, 2020 07:35
[2020-05-09 07:43] LABS: BASOPHILS # (AUTO) 0.1 10^3/uL (0.0-0.1); BASOPHILS % (AUTO) 1 % (0-10); EOSINOPHILS # (AUTO) 0.3 10^3/uL (0.0-0.3); EOSINOPHILS % (AUTO) 3 % (0-10); HEMATOCRIT 42 % (35-52); HEMOGLOBIN 14.4 g/dL (11.5-16.0); LYMPHOCYTES # (AUTO) 5.6 10^3/uL (1.0-4.0); LYMPHOCYTES % (AUTO) 60 % (12-44); MEAN CORPUSCULAR HEMOGLOBIN 30 pg (25-34); MEAN CORPUSCULAR HGB CONC 34 g/dL (32-36); MEAN CORPUSCULAR VOLUME 89 fL (80-99); MONOCYTES # (AUTO) 0.6 10^3/uL (0.0-1.0); MONOCYTES % (AUTO) 6 % (0-12); NEUTROPHILS # (AUTO) 2.8 10^3/uL (1.8-7.8); NEUTROPHILS % (AUTO) 29 % (42-75); PLATELET COUNT 202 10^3/uL (130-400); WHITE BLOOD COUNT 9.4 10^3/uL (4.3-11.0)
[2020-05-09] MEDS ORDERED: fentaNYL INJECTION 100 MCG/2 ML AMP IVP ONE (07:45)
[2020-05-09] MEDS ORDERED: NS 100 ML (IVPB) BAG IV ONE (07:45)
[2020-05-09] MEDS ORDERED: CATHETER FLUSH 10 ML SYR IV PRN (07:45)
[2020-05-09] MEDS ORDERED: HOLD METFORMIN - RECEIVED CONTRAST 20 ML VIAL IV SCH (07:45)
[2020-05-09] MEDS ORDERED: IOHEXOL 350 MG/ML 100 ML (OMNIPAQUE 350) VIAL IV ONE (07:45)
[2020-05-09 07:49] LABS: BILIRUBIN,URINE NEGATIVE (NEGATIVE); CLARITY,URINE CLEAR; COLOR,URINE YELLOW; GLUCOSE, URINE (UA) NEGATIVE (NEGATIVE); KETONES,URINE NEGATIVE (NEGATIVE); LEUKOCYTE ESTERASE ,URINE NEGATIVE (NEGATIVE); NITRITE,URINE NEGATIVE (NEGATIVE); PROTEIN,URINE NEGATIVE (NEGATIVE)
[2020-05-09 07:51] LABS: ALBUMIN 4.2 GM/DL (3.2-4.5); CHLORIDE 105 MMOL/L (98-107); POTASSIUM 3.4 MMOL/L (3.6-5.0); SODIUM 138 MMOL/L (135-145)
[2020-05-09 07:52] LABS: CALCIUM 8.6 MG/DL (8.5-10.1)
[2020-05-09 07:53] LABS: GLUCOSE 98 MG/DL (70-105)
[2020-05-09 07:54] LABS: TOTAL PROTEIN 6.7 GM/DL (6.4-8.2)
[2020-05-09 07:55] LABS: BILIRUBIN,TOTAL 0.4 MG/DL (0.1-1.0); CARBON DIOXIDE 25 MMOL/L (21-32)
[2020-05-09 07:57] LABS: ALKALINE PHOSPHATASE 72 U/L (40-136); CREATININE SERUM 0.81 MG/DL (0.60-1.30); GFR ESTIMATED > 60
[2020-05-09 07:58] LABS: BUN/CREATININE RATIO 11
[2020-05-09 08:00] LABS: ALANINE AMINOTRANSFERASE 21 U/L (0-55)
[2020-05-09 08:13] LABS: BACTERIA,URINE TRACE /HPF; RBC,URINE RARE /HPF; SQUAMOUS EPITHELIAL CELL,UR 0-2 /HPF; WBC,URINE RARE /HPF
[2020-05-09 08:34] LABS: BAND NEUTROPHILS 1 %; BASOPHILS % (MANUAL) 0 %; EOSINOPHILS % (MANUAL) 2 %; LYMPHOCYTES % (MANUAL) 55 %; MONOCYTES % (MANUAL) 4 %; NEUTROPHILS % (MANUAL) 28 %
[2020-05-09 08:35] LABS: RBC MORPH NORMAL; REACTIVE LYMPHOCYTES 10 %
--- NOTE | 2020-05-09 08:37 | Diagnostic Imaging Report ---
PROCEDURE: CT chest, abdomen, and pelvis with contrast. TECHNIQUE: Multiple contiguous axial images were obtained through the chest, abdomen, and pelvis after the administration of intravenous contrast. Auto Exposure Controls were utilized during the CT exam to meet ALARA standards for radiation dose reduction. INDICATION: Fell, chest, abdomen and pelvis pain. FINDINGS: The previous CT abdomen/pelvis without contrast exam of 12/28/2019 raise the question of cystitis. There is also small amount of nonspecific free fluid in the pelvis. On this exam, there is again a similar amount of free fluid in the pelvis. This finding is nonspecific and could be physiologic in nature. The possibility is related to recent rupture of an ovarian cyst should also be considered. If further evaluation is desired, then ultrasound would be recommended. The uterus does not appear to be enlarged. The urinary bladder is not fully distended but shows no definite abnormality. The appendix was not well-visualized but there are no indirect signs of acute appendicitis. There are a few fluid-filled segments of small bowel present. This appearance is nonspecific but could be related to a mild ileus perhaps secondary to enteritis. On the immediate postcontrast series, there is a 1.7 x 1.8 x 2.2 cm area of enhancement near the gallbladder fossa in segment IV of the liver. This is a new finding when compared to the prior CT abdomen/pelvis exam with contrast performed on 04/15/2016. This area of enhancement is not evident on the delayed series and I suspect is related to a benign cavernous hemangioma. If further study is desired, then ultrasound would be recommended. The spleen, pancreas, adrenals, kidneys, aorta and inferior vena cava and portal vein show no sign of an acute abnormality. In the interval since the prior exam, the patient has undergone a cholecystectomy. The stomach is filled with particulate matter and consequently difficult to assess. The images through the thorax show the heart size is within normal limits. The lungs are clear. There is no evidence for contusion or pneumothorax and there is no sign of pneumonia or pleural effusion. The aorta is not abnormally dilated and there is no evidence for dissection. The pulmonary arteries were not fully opacified and consequently difficult to assess for pulmonary embolus. There is no definite defect to suggest a pulmonary embolus. There is no mediastinal or hilar adenopathy. The thyroid gland where visualized is unremarkable. There is no obvious breast mass. The bone windows show no evidence for fracture or for destructive lesion. In particular, there is no sign of an acute bony abnormality of the right hip. However there does appear to be mild edema/inflammation of the subcutaneous fat over the right flank and right iliac crest. IMPRESSION: 1. There is a small amount of nonspecific free fluid in the pelvis. Whether this finding is physiologic in nature or whether this is related to recent rupture of a small ovarian cysts is not certain. If further evaluation is desired, then ultrasound of the pelvis would be recommended. 2. The fluid in the small bowel could be secondary to a mild ileus perhaps related to enteritis. Clinical follow-up is recommended. 3. There is no acute abnormality of the chest, abdomen or pelvis noted otherwise. 4. The enhancing lesion within segment IV of the liver is most likely a benign process such as cavernous hemangioma. If further study is desired, then ultrasound would be recommended. 5. There has been an interval cholecystectomy. 6. These results were discussed Dr. Connor Butterfield. Dictated by: Dictated on workstation # [id number]
[2020-05-09] MEDS ORDERED: KETOROLAC 30 MG/ML VIAL ONE (08:45)
[2020-05-09] MEDS ORDERED: KETOROLAC 30 MG/ML VIAL IVP ONE (08:45)
== END 2020-05-09 08:55 | disposition home or self-care (01) ==
LOC: EDUNIT# 07:00 → ER 07:03
DX: R10.31 Right lower quadrant pain (principal); R11.10 Vomiting, unspecified; R07.89 Other chest pain; K76.9 Liver disease, unspecified; F41.9 Anxiety disorder, unspecified; Z91.041 Radiographic dye allergy status; Z88.1 Allergy status to other antibiotic agents; Z88.8 Allergy status to other drugs, medicaments and biological substances
CPT/HCPCS: 36415; 71260; 74177; 80053; 81000; 84703; 85007; 85027

== ENCOUNTER → 2020-05-24 | Outpatient (CLI) | payer MEDICAID ==
--- NOTE | 2020-05-24 11:30 | Diagnostic Imaging Report ---
PROCEDURE: US Hepatic (Liver). TECHNIQUE: Multiple real-time grayscale images were obtained over the right upper quadrant in various projections. INDICATION: Liver mass. COMPARISON: Correlation is made with recent CT from 05/09/2020. FINDINGS: Liver is normal in size at 15 cm. There is a hypoechoic mass noted in the right lobe of the liver measuring approximately 2.4 x 1.5 x 2.3 cm, likely accounting for the mass noted on recent CT. No other liver masses are seen. Gallbladder is surgically absent. There is no biliary ductal dilatation. Pancreas is unremarkable. Aorta is nonaneurysmal. Right kidney is without calculi or hydronephrosis. IMPRESSION: Hypoechoic right lobe liver mass. This does not have the classic appearance of a hemangioma by ultrasound criteria. Exact etiology is indeterminate. Dedicated liver MRI would be recommended for better characterization. Dictated by: Dictated on workstation # [id number]
== END ==
LOC: RAD 10:09
PROVIDERS: ATTEND Family Medicine
DX: R16.0 Hepatomegaly, not elsewhere classified (principal)
CPT/HCPCS: 76705

== ENCOUNTER → 2020-06-06 | Outpatient (CLI) | payer MEDICAID ==
[~2020-06-06] MED LIST changes: +GADOBUTROL 7.5 MMOL/7.5 ML (GADAVIST) VIAL IV ONE
--- NOTE | 2020-06-06 11:15 | Diagnostic Imaging Report ---
PROCEDURE: MR imaging abdomen with and without contrast. TECHNIQUE: Multiplanar, multisequence MR imaging of the abdomen was performed with and without contrast. INDICATION: Liver mass There are no prior MRI examinations available for comparison. The CT chest, abdomen and pelvis exam of 05/09/2020 did note an enhancing lesion within segment 4 of the liver. This is felt to be related to a cavernous hemangioma. However the subsequent hepatic ultrasound exam of 05/24/2020 suggest that this lesion did not have the classic appearance for hemangioma. On this exam the lesion in question is again identified. This lesion does show some enhancement with contrast although the enhancement pattern is not entirely typical for hemangioma. Even so, I still suspect that this is a benign vascular abnormality of the liver. There is no other abnormality of the liver identified. The remainder of the abdomen itself is also unremarkable for an acute abnormality. IMPRESSION: 1. There is some enhancement of the lesion in segment 6 of the liver. The enhancement pattern however is not entirely typical for hemangioma. Even so, this is still most likely a benign vascular anomaly of the liver. I would recommend that a short-term (three-month) follow-up ultrasound exam be performed for continued evaluation. 2. There is no acute abnormality of the abdomen identified. Dictated by: Dictated on workstation # [id number]
== END ==
LOC: RAD 09:30
PROVIDERS: ATTEND Family Medicine
DX: K76.89 Other specified diseases of liver (principal)
CPT/HCPCS: 74183

== ENCOUNTER 2020-06-28 06:02 | Emergency (ER) | payer MEDICAID ==
[~2020-06-28] VITALS: Ht 170 cm; Wt 54.4 kg
[~2020-06-28 06:02] MED LIST changes: -GADOBUTROL 7.5 MMOL/7.5 ML (GADAVIST) VIAL IV ONE
--- NOTE | 2020-06-28 06:28 | ED Abdominal Pain ---
General Chief Complaint: Abdominal/GI Problems Stated Complaint: ABD PAIN Source of Information: Patient Exam Limitations: No Limitations History of Present Illness Date Seen by Provider: Jun 28, 2020 Time Seen by Provider: 06:17 Initial Comments Patient is a 19-year-old female who presents to the emergency department today with a chief complaint of abdominal pain. Patient states that she has had this pain off and on for the last several months since she had her gallbladder removed last year. Patient describes a cramping type pain that seems to be located in the right abdomen, upper and lower quadrants. Patient states she has been taking ibuprofen to try and alleviate her symptoms without much help. She endorses nausea. She has had some vomiting. She states eating makes her pain a little bit worse. She denies any black or bloody stools but occasionally has diarrhea. No symptoms, dysuria, urgency, frequency or vaginal discharge. Patient is 2 weeks post menstrual cycle. She is not on control. Patient denies daily alcohol use. No fevers or chills. Patient currently rates her pain at a "7". All other review of systems reviewed and negative except as stated. Timing/Duration: Intermittent Severity/Quality: Moderate, Cramping Location: RUQ, RLQ Radiation: No Radiation Activities at Onset: None Associated Symptoms: Nausea/Vomiting Allergies and Home Medications Allergies Coded Allergies: diphenhydramine (Verified Allergy, Mild, N/V, 06/28/20) Penicillins (Verified Allergy, Unknown, 06/28/20) red dye (Verified Allergy, Unknown, 06/28/20) Home Medications Alprazolam 0.5 Mg Tablet, 0.5 MG PO PRN PRN for ANXIETY, (Reported) Buspirone HCl 5 Mg Tablet, 5 MG PO DAILY, (Reported) Desogestrel-Ethinyl Estradiol 1 Each Tablet, 1 EACH PO DAILY, (Reported) Patient Home Medication List Home Medication List Reviewed: Yes Review of Systems Review of Systems Constitutional: see HPI EENTM: No Symptoms Reported Respiratory: No Symptoms Reported Cardiovascular: No Symptoms Reported Gastrointestinal: Abdominal Pain, Nausea, Vomiting Genitourinary: No Symptoms Reported; Denies Burning, Denies Urgency Musculoskeletal: no symptoms reported Skin: no symptoms reported All Other Systems Reviewed Negative Unless Noted: Yes Past Kmolgwg-Sofzlc-Ppsrkt Hx Patient Social History Type Used: Electronic/Vapor 2nd Hand Smoke Exposure: No Recent Hopitalizations: No Immunizations Up To Date Tetanus Booster (TDap): Less than 5yrs PED Vaccines UTD: Yes Seasonal Allergies Seasonal Allergies: Yes Past Medical History Surgeries: Yes Adenoidectomy, Gallbladder, Tonsillectomy Respiratory: No Cardiac: No 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) Headaches /Migraines Reproductive Disorders: No Female Reproductive Disorders: Ovarian Cyst Sexually Transmitted Disease: No HIV/AIDS: No Genitourinary: Yes Bladder Infection Gastrointestinal: Yes (N/V) Gastroesophageal Reflux, Chronic Constipation, Chronic Diarrhea, Gall Bladder Disease Musculoskeletal: No Endocrine: No HEENT: Yes (GLASSES/CONTACTS) Tonsilitis Cancer: No Psychosocial: No Sleep Difficulties, Anxiety Integumentary: Yes (ICHTHYOSIS VULGARIS) Blood Disorders: No Adverse Reaction/Blood Tranf: No (N/A) Family Medical History No Pertinent Family Hx Physical Exam Vital Signs Vital Signs - First Documented 06/28/20 06:10 Temp 37.5 Pulse 83 Resp 20 B/P (MAP) 119/85 (96) Pulse Ox 96 Capillary Refill : Height/Weight/BMI Height: 5'6.00" Weight: 121lbs. 0oz. 54.156285ro; 21.00 BMI Method:Actual General Appearance: WD/WN, no apparent distress HEENT: PERRL/EOMI Neck: normal inspection Respiratory: lungs clear, normal breath sounds, no respiratory distress, no accessory muscle use Cardiovascular: regular rate, rhythm, no murmur Gastrointestinal: normal bowel sounds, soft, no organomegaly, other (Mild right upper quadrant and right lower quadrant tenderness also some periumbilical tenderness. No rebound or guarding. Negative Mike sign. No pain at McBurney's point.) Extremities: normal inspection Neurologic/Psychiatric: alert, normal mood/affect, oriented x 3 Skin: normal color, warm/dry Progress/Results/Core Measures Results/Orders Lab Results Laboratory Tests Test 06/28/20 06:20 06/28/20 06:30 Range/Units Urine Color DARK YELLOW Urine Clarity CLEAR Urine pH 6.0 5-9 Urine Specific [place] 1.025 H 1.016-1.022 Urine Protein TRACE H NEGATIVE Urine Glucose (UA) NEGATIVE NEGATIVE Urine Ketones NEGATIVE NEGATIVE Urine Nitrite NEGATIVE NEGATIVE Urine Bilirubin NEGATIVE NEGATIVE Urine Urobilinogen 0.2 < = 1.0 MG/DL Urine Leukocyte Esterase NEGATIVE NEGATIVE Urine RBC (Auto) NEGATIVE NEGATIVE Urine RBC NONE /HPF Urine WBC NONE /HPF Urine Squamous Epithelial Cells 5-10 /HPF Urine Crystals PRESENT H /LPF Urine Calcium Oxalate Crystals MODERATE H /LPF Urine Bacteria TRACE /HPF Urine Casts NONE /LPF Urine Mucus SMALL H /LPF Urine Culture Indicated NO White Blood Count 7.8 4.3-11.0 10^3/uL Red Blood Count 4.56 3.80-5.11 10^6/uL Hemoglobin 14.0 11.5-16.0 g/dL Hematocrit 40 35-52 % Mean Corpuscular Volume 88 80-99 fL Mean Corpuscular Hemoglobin 31 25-34 pg Mean Corpuscular Hemoglobin Concent 35 32-36 g/dL Red Cell Distribution Width 11.6 10.0-14.5 % Platelet Count 221 130-400 10^3/uL Mean Platelet Volume 9.5 9.0-12.2 fL Immature Granulocyte % (Auto) 0 % Neutrophils (%) (Auto) 45 42-75 % Lymphocytes (%) (Auto) 44 12-44 % Monocytes (%) (Auto) 7 0-12 % Eosinophils (%) (Auto) 3 0-10 % Basophils (%) (Auto) 1 0-10 % Neutrophils # (Auto) 3.5 1.8-7.8 10^3/uL Lymphocytes # (Auto) 3.4 1.0-4.0 10^3/uL Monocytes # (Auto) 0.5 0.0-1.0 10^3/uL Eosinophils # (Auto) 0.3 0.0-0.3 10^3/uL Basophils # (Auto) 0.1 0.0-0.1 10^3/uL Immature Granulocyte # (Auto) 0.0 0.0-0.1 10^3/uL Sodium Level 138 135-145 MMOL/L Potassium Level 3.3 L 3.6-5.0 MMOL/L Chloride Level 106 98-107 MMOL/L Carbon Dioxide Level 21 21-32 MMOL/L Anion Gap 11 5-14 MMOL/L Blood Urea Nitrogen 14 7-18 MG/DL Creatinine 0.78 0.60-1.30 MG/DL Estimat Glomerular Filtration Rate > 60 BUN/Creatinine Ratio 18 Glucose Level 146 H 70-105 MG/DL Calcium Level 8.6 8.5-10.1 MG/DL Corrected Calcium 8.5 8.5-10.1 MG/DL Total Bilirubin 0.4 0.1-1.0 MG/DL Aspartate Amino Transf (AST/SGOT) 18 5-34 U/L Alanine Aminotransferase (ALT/SGPT) 16 0-55 U/L Alkaline Phosphatase 78 40-136 U/L Total Protein 6.8 6.4-8.2 GM/DL Albumin 4.1 3.2-4.5 GM/DL Lipase 42 8-78 U/L My Orders Orders - LUIS LUCIANO MD Ed Iv/Invasive Line Start (06/28/20 06:21) Cbc With Automated Diff (06/28/20 06:21) Comprehensive Metabolic Panel (06/28/20 06:21) Lipase (06/28/20 06:21) Urine Bedside (06/28/20 06:21) Ua Culture If Indicated (06/28/20 06:21) Ketorolac Injection (Toradol Injection) (06/28/20 07:15) Dicyclomine Capsule (Bentyl Capsule) (06/28/20 11:00) Vital Signs/I&O 06/28/20 06:10 Temp 37.5 Pulse 83 Resp 20 B/P (MAP) 119/85 (96) Pulse Ox 96 Progress Progress Note : Time: 06:27 Progress Note 19-year-old female with abdominal pain. Evaluation today includes a physical exam, CBC, Chem-12 lipase and urinalysis and test. Patient's exam is benign. She has diffuse tenderness to the right upper and lower quadrants without evidence of rebound or guarding. No signs of surgical abdomen are present. The patient appears comfortable in the bed/negative Mike sign. Patient has no significant tenderness at McBurney's point. She denies symptomatology. Patient does have a history of pancreatitis in the past. She is followed by her primary care doctor, Dr. Jourdan Milligan. will check these basic labs and determine disposition after laboratory evaluation. 0726 patient reevaluated, resting comfortably still has her pain. Pain medications, Toradol and Bentyl ordered. Labs have been reviewed, CBC, Chem-12 with lipase and urine and urine test are all negative. Patient is reassured that at this time she has no clinical or objective findings to warrant further investigation or CT scan. She has no evidence of an acute abdomen. No evidence of an acute surgical process is found to be present. Patient is advised to follow-up with her primary care physician, Dr. Milligan. She verbali zes understanding. She is comfortable with this plan of care. All questions are sought and answered. Patient is stable for discharge. Departure Impression Primary Impression: Abdominal pain Qualified Codes: R10.11 - Right upper quadrant pain Disposition: 01 HOME, SELF-CARE Condition: Stable Departure-Patient Inst. Decision time for Depature: 07:27 Referrals: JOURDAN MILLIGAN MD (PCP/Family) Primary Care Physician Patient Instructions: Abdominal Pain, Adult ED Add. Discharge Instructions: Eat a bland diet for the next 24 to 48 hours. Take the Bentyl as prescribed 30 minutes before meals and at bedtime. I have also given you a prescription for naproxen you can take this with food in the morning and at night as needed for worsening abdominal pain. Please call your primary care physician for follow-up. Return to the emergency room in 12-24 hours for a re-evaluation for any worsening abdominal pain especially associated with fever, vomiting or any other emergent concerning symptoms. Scripts Naproxen (Naprosyn) 500 Mg Tablet 500 MG PO BID PRN for PAIN-MODERATE (5-7), #30 TAB 0 Refills Prov: LUIS LUCIANO MD 06/28/20 Dicyclomine HCl (Dicyclomine HCl) 10 Mg Capsule 10 MG PO QIDACHS PRN for abdominal pain, #30 CAP Prov: LUIS LUCIANO MD 06/28/20 Copy Copies To 1: JOURDAN MILLIGAN MD, KATHRYN M MD Jun 28, 2020 06:28
[2020-06-28 06:31] LABS: BILIRUBIN,URINE NEGATIVE (NEGATIVE); CLARITY,URINE CLEAR; COLOR,URINE DARK YELLOW; GLUCOSE, URINE (UA) NEGATIVE (NEGATIVE); KETONES,URINE NEGATIVE (NEGATIVE); LEUKOCYTE ESTERASE ,URINE NEGATIVE (NEGATIVE); NITRITE,URINE NEGATIVE (NEGATIVE); PROTEIN,URINE TRACE (NEGATIVE)
[2020-06-28 06:39] LABS: BASOPHILS # (AUTO) 0.1 10^3/uL (0.0-0.1); BASOPHILS % (AUTO) 1 % (0-10); EOSINOPHILS # (AUTO) 0.3 10^3/uL (0.0-0.3); EOSINOPHILS % (AUTO) 3 % (0-10); HEMATOCRIT 40 % (35-52); LYMPHOCYTES # (AUTO) 3.4 10^3/uL (1.0-4.0); LYMPHOCYTES % (AUTO) 44 % (12-44); MEAN CORPUSCULAR HEMOGLOBIN 31 pg (25-34); MEAN CORPUSCULAR HGB CONC 35 g/dL (32-36); MEAN CORPUSCULAR VOLUME 88 fL (80-99); MEAN PLATELET VOLUME 9.5 fL (9.0-12.2); MONOCYTES # (AUTO) 0.5 10^3/uL (0.0-1.0); MONOCYTES % (AUTO) 7 % (0-12); NEUTROPHILS # (AUTO) 3.5 10^3/uL (1.8-7.8); NEUTROPHILS % (AUTO) 45 % (42-75); PLATELET COUNT 221 10^3/uL (130-400); WHITE BLOOD COUNT 7.8 10^3/uL (4.3-11.0)
[2020-06-28 06:49] LABS: ALBUMIN 4.1 GM/DL (3.2-4.5); CHLORIDE 106 MMOL/L (98-107); POTASSIUM 3.3 MMOL/L (3.6-5.0); SODIUM 138 MMOL/L (135-145)
[2020-06-28 06:51] LABS: CALCIUM 8.6 MG/DL (8.5-10.1)
[2020-06-28 06:52] LABS: GLUCOSE 146 MG/DL (70-105); TOTAL PROTEIN 6.8 GM/DL (6.4-8.2)
[2020-06-28 06:53] LABS: BILIRUBIN,TOTAL 0.4 MG/DL (0.1-1.0); CARBON DIOXIDE 21 MMOL/L (21-32)
[2020-06-28 06:55] LABS: ALKALINE PHOSPHATASE 78 U/L (40-136); CREATININE SERUM 0.78 MG/DL (0.60-1.30); GFR ESTIMATED > 60
[2020-06-28 06:56] LABS: BUN/CREATININE RATIO 18
[2020-06-28 06:58] LABS: ALANINE AMINOTRANSFERASE 16 U/L (0-55)
[2020-06-28 06:59] LABS: LIPASE 42 U/L (8-78)
--- NOTE | 2020-06-28 07:00 | NUR ---
ASSUMED CARE OF THE PT.
[2020-06-28 07:03] LABS: BACTERIA,URINE TRACE /HPF; CALCIUM OXALATE CRYSTALS,UR MODERATE /LPF
[2020-06-28] MEDS ORDERED: KETOROLAC 30 MG/ML VIAL IVP ONE (07:15)
[2020-06-28] MEDS ORDERED: NAPR-1071 PO (07:30)
[2020-06-28] MEDS ORDERED: DICY10CA12 PO (07:30)
--- NOTE | 2020-06-28 07:33 | NUR ---
pharmacy notified of needing a med.
[2020-06-28 08:02] VITALS: BP 112/79
[2020-06-28] MEDS ORDERED: DICYCLOMINE 10 MG (BENTYL) CAP PO SCH (11:00)
== END 2020-06-28 08:02 | disposition home or self-care (01) ==
LOC: EDUNIT# 06:02 → ER 06:05
DX: R10.11 Right upper quadrant pain (principal); R10.31 Right lower quadrant pain; F41.9 Anxiety disorder, unspecified; Z88.0 Allergy status to penicillin; Z88.8 Allergy status to other drugs, medicaments and biological substances; Z91.041 Radiographic dye allergy status
CPT/HCPCS: 36415; 80053; 81000; 83690; 84703; 85025

== ENCOUNTER 2020-10-10 07:58 | Emergency (ER) | payer MEDICAID ==
[~2020-10-10] VITALS: Ht 170.1 cm; Wt 54.5 kg
[~2020-10-10 07:58] MED LIST changes: +DICY10CA12 PO; +NAPR-1071 PO
[2020-10-10 08:57] LABS: BILIRUBIN,URINE NEGATIVE (NEGATIVE); CLARITY,URINE CLEAR; COLOR,URINE YELLOW; GLUCOSE, URINE (UA) NEGATIVE (NEGATIVE); KETONES,URINE NEGATIVE (NEGATIVE); LEUKOCYTE ESTERASE ,URINE NEGATIVE (NEGATIVE); NITRITE,URINE NEGATIVE (NEGATIVE); PH,URINE 6.5 (5-9); PROTEIN,URINE NEGATIVE (NEGATIVE)
[2020-10-10 09:22] LABS: BACTERIA,URINE FEW /HPF; WBC,URINE RARE /HPF
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
[2020-10-10] MEDS ORDERED: NS IV 1000 ML 1,000 ML IV SCH (09:45)
[2020-10-10] MEDS ORDERED: ONDANSETRON 4 MG/2 ML (SDV) Z0FRAN IVP ONE (09:45)
[2020-10-10] MEDS ORDERED: ORPHENADRINE 60 MG/2 ML (NORFLEX) AMP (ED ONLY) IM ONE (09:45)
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
[2020-10-10] MEDS ORDERED: KETOROLAC 30 MG/ML VIAL IVP ONE (11:15)
[2020-10-10] MEDS ORDERED: CYCL10TA9 PO (11:30)
== END 2020-10-10 11:46 | disposition home or self-care (01) ==
LOC: EDUNIT# 07:58 → ER 08:00
DX: S06.0X0A Concussion without loss of consciousness, initial encounter (principal); M54.2 Cervicalgia; M54.5 Low back pain; F41.9 Anxiety disorder, unspecified; G43.909 Migraine, unspecified, not intractable, without status migrainosus; F17.290 Nicotine dependence, other tobacco product, uncomplicated; Z79.899 Other long term (current) drug therapy; W50.0XXA Accidental hit or strike by another person, initial encounter
CPT/HCPCS: 70450; 72125; 81000; 84703

== ENCOUNTER 2022-01-06 20:14 | Emergency (ER) | payer MEDICAID ==
[~2022-01-06] VITALS: Ht 167.7 cm; Wt 60.3 kg
[~2022-01-06 20:14] MED LIST changes: +CYCL10TA25 PO
[2022-01-06 20:50] LABS: BILIRUBIN,URINE NEGATIVE (NEGATIVE); CLARITY,URINE CLEAR; COLOR,URINE YELLOW; GLUCOSE, URINE (UA) NEGATIVE (NEGATIVE); KETONES,URINE NEGATIVE (NEGATIVE); LEUKOCYTE ESTERASE ,URINE NEGATIVE (NEGATIVE); NITRITE,URINE NEGATIVE (NEGATIVE); PROTEIN,URINE NEGATIVE (NEGATIVE)
--- NOTE | 2022-01-06 20:54 | ED GU-Female ---
General Chief Complaint: - Reproductive Stated Complaint: PELVIC PAIN Nursing Triage Note: PT ARRIVAL TO ER WITH COMPLAINT OF PELVIC PAIN X1 HOUR. PAIN IS SHARP. PATIENT STATES THAT THERE IS A PRESSURE LIKE PAIN WITH URINATION. PT ALSO STATES THAT SHE IS HAVING SOME PELVIC MUSCLE SPASMS. Source: patient History of Present Illness Date Seen by Provider: Jan 06, 2022 Time Seen by Provider: 20:43 Initial Comments PT ARRIVES VIA POV FROM HOME WITH MOTHER PT STATES THAT SHE HAD SUDDEN ONSET OF PELVIC PAIN 1 HOUR PRIOR TO ARRIVAL PT HAD JUST FINISHED EATING DINNER WHEN PAIN BEGAN--ATE DINNER AROUND 1700 PAIN IS IN SUPRAPUBIC AREA AND RADIATES DOWN TO URETHRA/GENITAL AREA PAIN IS WORSE WITH URINATION, AND FEELS ALOT OF PRESSURE AND SHARP PAIN WITH URINATION AND FEELS LIKE SPASMS NO BLOOD IN URINE NO FEVER NO NAUSEA/VOMITING NO INCREASE IN CHRONIC LOW BACK PAIN LMP--ENDED 12/21/21, NORMAL. NO CONTROL NO VAGINAL DISCHARGE PT IS SEXUALLY ACTIVE NO HISTORY OF SIMILAR HAS NOT TAKEN ANYTHING FOR PAIN Allergies and Home Medications Allergies Coded Allergies: diphenhydramine (Verified Allergy, Mild, N/V, 06/28/20) Penicillins (Verified Allergy, Unknown, 06/28/20) red dye (Verified Allergy, Unknown, 06/28/20) Patient Home Medication List Home Medication List Reviewed: Yes Alprazolam (Alprazolam) 0.5 Mg Tablet, 0.5 MG PO PRN PRN for ANXIETY, (Reported) Entered as Reported by: MAURICE KINGSTON on 03/01/20 1424 Buspirone HCl (Buspirone HCl) 5 Mg Tablet, 5 MG PO DAILY, (Reported) Entered as Reported by: MAURICE KINGSTON on 03/01/20 1424 Cyclobenzaprine HCl (Cyclobenzaprine HCl) 10 Mg Tablet, 5-10 MG PO Q8H PRN for SPASMS Prescribed by: PAT EVANS on 10/10/20 1130 Desogestrel-Ethinyl Estradiol (Desogest-Eth Estra 0.15-0.03MG) 1 Each Tablet, 1 EACH PO DAILY, (Reported) Entered as Reported by: MAURICE KINGSTON on 03/01/20 1424 Dicyclomine HCl (Dicyclomine HCl) 10 Mg Capsule, 10 MG PO QIDACHS PRN for abdominal pain Prescribed by: LUIS LUCIANO on 06/28/20 0730 Naproxen (Naprosyn) 500 Mg Tablet, 500 MG PO BID PRN for PAIN-MODERATE (5-7) Prescribed by: LUIS LUCIANO on 06/28/20 0730 Naproxen (Naproxen) 500 Mg Tablet.dr, 500 MG PO BID Prescribed by: MIR GUERRIER on 01/06/22 2350 Review of Systems Review of Systems Constitutional: no symptoms reported Respiratory: no symptoms reported Cardiovascular: no symptoms reported Gastrointestinal: see HPI Genitourinary: see HPI : No LMP: Dec 16, 2021 Musculoskeletal: see HPI Skin: no symptoms reported Psychiatric/Neurological: No Symptoms Reported Endocrine: No Symptoms Reported Hematologic/Lymphatic: No Symptoms Reported Past Yefwsws-Eoostj-Ieggxg Hx Patient Social History Tobacco Use?: No Use of E-Cig and/or Vaping dev: Yes E-Cig or Vaping type used: Nicotine Use of E-Cig and/or Vaping Marty: Current Everyday User Substance use?: No Alcohol Use?: No Pt feels they are or have been: No Immunizations Up To Date Tetanus Booster (TDap): Less than 5yrs PED Vaccines UTD: Yes Second COVID19 Vaccination Daniel: 12/12 COVID19 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 Seasonal Allergies Seasonal Allergies: Yes Past Medical History Surgeries: Yes Adenoidectomy, Gallbladder, Tonsillectomy Respiratory: No Cardiac: No 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) Headaches /Migraines : No Reproductive Disorders: Yes Female Reproductive Disorders: Ovarian Cyst Sexually Transmitted Disease: No HIV/AIDS: No Genitourinary: Yes Bladder Infection Gastrointestinal: Yes (N/V) Gastroesophageal Reflux, Chronic Constipation, Chronic Diarrhea, Gall Bladder Disease Musculoskeletal: No Endocrine: No HEENT: Yes (GLASSES/CONTACTS) Tonsilitis Cancer: No Psychosocial: Yes Sleep Difficulties, Anxiety Integumentary: Yes (ICHTHYOSIS VULGARIS) Blood Disorders: No Adverse Reaction/Blood Tranf: No (N/A) Family Medical History No Pertinent Family Hx Physical Exam Vital Signs Vital Signs - First Documented 01/06/22 20:25 Temp 36.8 Pulse 102 Resp 18 B/P (MAP) 129/84 (99) Pulse Ox 97 O2 Delivery Room Air Capillary Refill : Less Than 3 Seconds Height, Weight, BMI Height: 5'6.00" Weight: 121lbs. 0oz. 54.182659bm; 21.00 BMI Method:Actual General Appearance: WD/WN, no apparent distress Cardiovascular: normal peripheral pulses, regular rate, rhythm, no murmur Respiratory: normal breath sounds, no respiratory distress, no accessory muscle use Gastrointestinal: normal bowel sounds, soft; No distended, No guarding, No rebound; tenderness (SUPRAPUBIC AND LLQ TENDERNESS); No hernia, No mass Pelvic: normal external exam, tender w/ cervical motion, tender adnexa (ON LEFT), tender uterus, other (CERVIX MILDY INFLAMED/FRIABLE. NO ABNROMAL DISCHARGE. ) Back: no CVA tenderness (BUT PALPATION OF RIGHT CVA AREA CAUSES PAIN IN SUPR APUBIC AND LLQ AREAS. ) Extremities: normal inspection Neurologic/Psychiatric: no motor/sensory deficits, alert, normal mood/affect, oriented x 3 Skin: normal color, warm/dry, tattoos/piercings (MULTIPLE TATTOOS) Progress/Results/Core Measures Suspected Sepsis SIRS Temperature: Pulse: 102 Respiratory Rate: 18 Laboratory Tests 01/06/22 21:28: White Blood Count 9.2 Blood Pressure 129 /84 Mean: 99 Laboratory Tests 01/06/22 21:28: Creatinine 0.89, Platelet Count 206, Total Bilirubin 0.4 Results/Orders Lab Results My Orders Medications Given in ED Vital Signs/I&O Capillary Refill : Less Than 3 Seconds Blood Pressure Mean: [address] ABDOMEN/PELVIS--PER RADIOLOGIST REPORT AT 0133 There may be a subcentimeter subcapsular cyst in the dome of the right lobe of the liver. Liver is otherwise stable and unremarkable. Gallbladder is surgically absent. There is no evidence of pancreatic, adrenal gland or splenic abnormality. Kidneys are also unremarkable and stable. There is no free fluid seen within the abdomen or pelvis. There is moderate to large amount of stool throughout the colon. There is no evidence of appendiceal inflammation. There is a probable collapsing cyst in the left ovary. No bladder abnormality was seen. IMPRESSION: No definite acute abnormality is identified however there is evidence of constipation. There appears to be a collapsing cyst in the left ovary. This could contribute to patient's symptoms. PELVIS ULTRASOUND--PER RADIOLOGIST REPORT AT 3263 FINDINGS: Uterus measures 7.5 x 3.1 x 4.2 cm without evidence of focal abnormality. There is an approximately 0.7 cm nabothian cyst. Endometrial thickness of 0.6 cm. Blood flow is confirmed to the ovaries bilaterally without evidence of adnexal mass. There may be a collapsed cyst in the left ovary. There is mild pelvic free fluid. IMPRESSION: Mild pelvic free fluid may be related to recently ruptured ovarian cyst. There is no evidence of ovarian torsion or other acute abnormality. Reviewed: Reviewed by Me Departure Impression Primary Impression: Left ovarian cyst Disposition: HOME, SELF-CARE Condition: Stable Departure-Patient Inst. Decision time for Depature: 23:49 Referrals: ELENI BUTLER MD (PCP/Family) Primary Care Physician Patient Instructions: Ovarian Cyst ED Add. Discharge Instructions: HOME, REST ACTIVITIES TOLERATED FOLLOW UP WITH YOUR DR IN 2-3 DAYS IF NO BETTER, RETURN TO ER IF WORSE All discharge instructions reviewed with patient and/or family. Voiced understanding. Scripts Naproxen (Naproxen) 500 Mg Tablet. 500 MG PO BID, #20 TAB Prov: MIR GUERRIER DO 01/06/22 MIR GUERRIER DO Jan 06, 2022 20:54
[2022-01-06 21:01] LABS: BACTERIA,URINE TRACE /HPF; WBC,URINE RARE /HPF
[2022-01-06] MEDS ORDERED: IOHEXOL 350 MG/ML 100 ML (OMNIPAQUE 350) VIAL IV ONE (21:30)
[2022-01-06] MEDS ORDERED: NS 100 ML (IVPB) BAG IV ONE (21:30)
[2022-01-06 21:41] LABS: BASOPHILS # (AUTO) 0.1 10^3/uL (0.0-0.1); BASOPHILS % (AUTO) 1 % (0-10); EOSINOPHILS # (AUTO) 0.2 10^3/uL (0.0-0.3); EOSINOPHILS % (AUTO) 2 % (0-10); HEMATOCRIT 43 % (35-52); HEMOGLOBIN 14.7 g/dL (11.5-16.0); LYMPHOCYTES # (AUTO) 3.1 10^3/uL (1.0-4.0); LYMPHOCYTES % (AUTO) 33 % (12-44); MEAN CORPUSCULAR HEMOGLOBIN 31 pg (25-34); MEAN CORPUSCULAR HGB CONC 34 g/dL (32-36); MEAN CORPUSCULAR VOLUME 90 fL (80-99); MEAN PLATELET VOLUME 9.7 fL (9.0-12.2); MONOCYTES # (AUTO) 0.6 10^3/uL (0.0-1.0); MONOCYTES % (AUTO) 7 % (0-12); NEUTROPHILS # (AUTO) 5.2 10^3/uL (1.8-7.8); NEUTROPHILS % (AUTO) 57 % (42-75); PLATELET COUNT 206 10^3/uL (130-400); WHITE BLOOD COUNT 9.2 10^3/uL (4.3-11.0)
[2022-01-06 21:45] LABS: ALBUMIN 4.1 GM/DL (3.2-4.5)
--- NOTE | 2022-01-06 21:45 | Diagnostic Imaging Report ---
PROCEDURE: CT abdomen and pelvis with contrast, rule out appendicitis. TECHNIQUE: Multiple contiguous axial images were obtained through the abdomen and pelvis after the administration of intravenous contrast. All CT scans use one or more of the following dose optimizing techniques: automated exposure control, MA and/or KvP adjustment based on patient size and exam type or iterative reconstruction. INDICATION: Bilateral quadrant abdominal pain COMPARISON: 05/09/2020 There may be a subcentimeter subcapsular cyst in the dome of the right lobe of the liver. Liver is otherwise stable and unremarkable. Gallbladder is surgically absent. There is no evidence of pancreatic, adrenal gland or splenic abnormality. Kidneys are also unremarkable and stable. There is no free fluid seen within the abdomen or pelvis. There is moderate to large amount of stool throughout the colon. There is no evidence of appendiceal inflammation. There is a probable collapsing cyst in the left ovary. No bladder abnormality was seen. IMPRESSION: No definite acute abnormality is identified however there is evidence of constipation. There appears to be a collapsing cyst in the left ovary. This could contribute to patient's symptoms. Dictated by: Dictated on workstation # [id number]
[2022-01-06 21:46] LABS: CALCIUM 8.9 MG/DL (8.5-10.1)
[2022-01-06 21:47] LABS: TOTAL PROTEIN 6.9 GM/DL (6.4-8.2)
[2022-01-06 21:49] LABS: BILIRUBIN,TOTAL 0.4 MG/DL (0.1-1.0)
[2022-01-06 21:51] LABS: CREATININE SERUM 0.89 MG/DL (0.60-1.30)
--- NOTE | 2022-01-06 23:43 | Diagnostic Imaging Report ---
PROCEDURE: US PELVIC (NON OB) TECHNIQUE: Multiple real-time grayscale images were obtained over the pelvis in various projections transabdominally. INDICATION: Pelvic pain FINDINGS: Uterus measures 7.5 x 3.1 x 4.2 cm without evidence of focal abnormality. There is an approximately 0.7 cm nabothian cyst. Endometrial thickness of 0.6 cm. Blood flow is confirmed to the ovaries bilaterally without evidence of adnexal mass. There may be a collapsed cyst in the left ovary. There is mild pelvic free fluid. IMPRESSION: Mild pelvic free fluid may be related to recently ruptured ovarian cyst. There is no evidence of ovarian torsion or other acute abnormality. Dictated by: Dictated on workstation # [id number]
[2022-01-06] MEDS ORDERED: KETOROLAC 30 MG/ML VIAL IVP ONE (23:45)
[2022-01-06] MEDS ORDERED: NAPR500T8 PO (23:50)
[2022-01-06] MEDS ORDERED: RX-NAPROXEN (NAPROSYN) 250 MG TAB PPK#4 PO STA (23:50)
[2022-01-07 00:08] VITALS: BP 105/63
== END 2022-01-07 00:07 | disposition home or self-care (01) ==
LOC: EDUNIT# 20:14 → ER 20:16
DX: N83.202 Unspecified ovarian cyst, left side (principal); F17.290 Nicotine dependence, other tobacco product, uncomplicated
CPT/HCPCS: 36415; 74177; 76856; 80053; 81000; 82150; 83690; 84703; 85025; 87070; 87205; 87210; 87220; 87491; 87591

== ENCOUNTER → 2022-01-13 | Outpatient (CLI) | payer MEDICAID ==
[~2022-01-13] MED LIST changes: +NAPR500T8 PO
--- NOTE | 2022-01-13 16:03 | Diagnostic Imaging Report ---
INDICATION: RT ANKLE SPRAIN. COMPARISON: None. FINDINGS: Three views of the right ankle were obtained. There is no acute fracture or dislocation. No focal osseous lesions are seen. The surrounding soft tissue structures are unremarkable. There are no radiopaque foreign bodies. IMPRESSION: No acute fracture or dislocation in the right ankle. Dictated by: Dictated on workstation # [id number]
== END ==
LOC: RAD 10:51
PROVIDERS: ATTEND Family Medicine
DX: S93.401A Sprain of unspecified ligament of right ankle, initial encounter (principal); X58.XXXA Exposure to other specified factors, initial encounter
CPT/HCPCS: 73610

== ENCOUNTER 2022-04-12 04:09 | Emergency (ER) | payer MEDICAID ==
[~2022-04-12] VITALS: Ht 168 cm; Wt 61.0 kg
[2022-04-12 04:14] VITALS: BP 148/109
[2022-04-12] MEDS ORDERED: AZIT500T2 PO (04:23)
--- NOTE | 2022-04-12 04:23 | ED EENT ---
History of Present Illness General Chief Complaint: Ear Problems Stated Complaint: LEFT SIDE JAW PAIN Source: patient Exam Limitations: no limitations History of Present Illness Date Seen by Provider: Apr 12, 2022 Time Seen by Provider: 04:15 Initial Comments 21-year-old female presents to the emergency department for left facial pain. She saw a dentist likely tooth related however they did not find anything. Symptoms present for about a week. He has been using Motrin without much relief. He denies any fevers or chills. Symptoms are worse when she lies flat. No alleviating factors. Nonradiating. Moderate. Allergies and Home Medications Allergies Coded Allergies: diphenhydramine (Verified Allergy, Mild, N/V, 06/28/20) Penicillins (Verified Allergy, Unknown, 06/28/20) red dye (Verified Allergy, Unknown, 06/28/20) Patient Home Medication List Home Medication List Reviewed: Yes Alprazolam (Alprazolam) 0.5 Mg Tablet, 0.5 MG PO PRN PRN for ANXIETY, (Reported) Entered as Reported by: MAURICE KINGSTON on 03/01/20 1424 Azithromycin (Zithromax Tri-Ted) 500 Mg Tablet, 500 MG PO DAILY Prescribed by: FIDEL JEAN-BAPTISTE MD on 04/12/22 0423 Buspirone HCl (Buspirone HCl) 5 Mg Tablet, 5 MG PO DAILY, (Reported) Entered as Reported by: MAURICE KINGSTON on 03/01/20 1424 Cyclobenzaprine HCl (Cyclobenzaprine HCl) 10 Mg Tablet, 5-10 MG PO Q8H PRN for SPASMS Prescribed by: PAT EVANS on 10/10/20 1130 Desogestrel-Ethinyl Estradiol (Desogest-Eth Estra 0.15-0.03MG) 1 Each Tablet, 1 EACH PO DAILY, (Reported) Entered as Reported by: MAURICE KINGSTON on 03/01/20 1424 Dicyclomine HCl (Dicyclomine HCl) 10 Mg Capsule, 10 MG PO QIDACHS PRN for abdominal pain Prescribed by: LUIS LUCIANO on 06/28/20 0730 Naproxen (Naprosyn) 500 Mg Tablet, 500 MG PO BID PRN for PAIN-MODERATE (5-7) Prescribed by: LUIS LUCIANO on 06/28/20 0730 Naproxen (Naproxen) 500 Mg Tablet.dr, 500 MG PO BID Prescribed by: MIR GUERRIER on 01/06/22 2350 Review of Systems Review of Systems Constitutional: no symptoms reported Eyes: No Symptoms Reported Ears: Pain Nose: no symptoms reported Mouth: no symptoms reported Throat: no symptoms reported Respiratory: no symptoms reported Cardiovascular: no symptoms reported Gastrointestinal: no symptoms reported Musculoskeletal: no symptoms reported Skin: no symptoms reported Neurological: No Symptoms Reported Hematologic/Lymphatic: No Symptoms Reported Immunological/Allergic: no symptoms reported Past Vcfcebl-Xebega-Qkxmuq Hx Patient Social History Tobacco Use?: Yes Substance use?: No Alcohol Use?: No Pt feels they are or have been: No Immunizations Up To Date Tetanus Booster (TDap): Less than 5yrs PED Vaccines UTD: Yes First/Initial COVID19 Vaccinat: 12/12 Second COVID19 Vaccination Daniel: 12/12 Seasonal Allergies Seasonal Allergies: Yes Past Medical History Surgery/Hospitalization HX: CHOLECYSTECTOMY, T/A Surgeries: Yes Adenoidectomy, Gallbladder, Tonsillectomy Respiratory: No Cardiac: No 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) Headaches /Migraines Reproductive Disorders: Yes Female Reproductive Disorders: Ovarian Cyst Sexually Transmitted Disease: No HIV/AIDS: No Genitourinary: Yes Bladder Infection Gastrointestinal: Yes (N/V) Gastroesophageal Reflux, Chronic Constipation, Chronic Diarrhea, Gall Bladder Disease Musculoskeletal: No Endocrine: No HEENT: Yes (GLASSES/CONTACTS) Tonsilitis Cancer: No Psychosocial: Yes Sleep Difficulties, Anxiety Integumentary: Yes (ICHTHYOSIS VULGARIS) Blood Disorders: No Adverse Reaction/Blood Tranf: No (N/A) Family Medical History Reviewed Nursing Family Hx No Pertinent Family Hx Physical Exam Vital Signs Vital Signs - First Documented 04/12/22 04:14 Temp 36.2 Pulse 84 Resp 16 B/P (MAP) 148/109 (122) Pulse Ox 98 O2 Delivery Room Air Height, Weight, BMI Height: 5'6.00" Weight: 121lbs. 0oz. 54.451209cf; 21.00 BMI Method:Actual General Appearance: WD/WN, no apparent distress Eyes: bilateral eye normal inspection, bilateral eye PERRL, bilateral eye EOMI Ears: right ear auricle normal, right ear canal normal, right ear TM normal; left ear TM red, left ear TM bulging Nose: normal inspection Mouth/Throat: normal mouth inspection, pharynx normal Neck: non-tender, supple, normal inspection Cardiovascular: regular rate, rhythm, no edema, no gallop, no JVD, no murmur Respiratory: chest non-tender, lungs clear, normal breath sounds, no respiratory distress, no accessory muscle use Gastrointestinal: normal bowel sounds, non tender, soft, no organomegaly, no pulsatile mass Neurologic/Psychiatric: alert, normal mood/affect, oriented x 3 Skin: normal color, warm/dry Progress/Results/Core Measures Results/Orders My Orders Orders - FIDEL JEAN-BAPTISTE DO Ketorolac Injection (Toradol Injection) (04/12/22 04:30) Azithromycin Tablet (Zithromax Tablet) (04/12/22 04:30) Medications Given in ED Current Medications Medications Dose Ordered Sig/Andre Route Start Time Stop Time Status Last Admin Dose Admin Azithromycin 500 mg ONCE ONCE PO 04/12/22 04:30 04/12/22 04:29 DC 04/12/22 04:26 500 MG Ketorolac Tromethamine 30 mg ONCE ONCE IM 04/12/22 04:30 04/12/22 04:29 DC 04/12/22 04:26 30 MG Vital Signs/I&O 04/12/22 04/12/22 04:14 04:26 Temp 36.2 36.2 Pulse 84 Resp 16 B/P (MAP) 148/109 (122) Pulse Ox 98 O2 Delivery Room Air Departure Communication (Admissions) Left-sided otitis media. Given Toradol, antibiotics Impression Primary Impression: Otitis media Qualified Codes: H66.002 - Acute suppurative otitis media without spontaneous rupture of ear drum, left ear Disposition: HOME, SELF-CARE Condition: Stable Departure-Patient Inst. Referrals: ELENI BUTLER MD (PCP/Family) Primary Care Physician Patient Instructions: Ear Infections (Otitis Media) in Adults (DC) Scripts Azithromycin (Zithromax Tri-Ted) 500 Mg Tablet 500 MG PO DAILY, #3 TAB Prov: FIDEL JEAN-BAPTISTE DO 04/12/22 FIDEL JEAN-BAPTISTE DO Apr 12, 2022 04:23
[2022-04-12] MEDS ORDERED: KETOROLAC 60 MG/2 ML VIAL IM ONE (04:30)
[2022-04-12] MEDS ORDERED: AZITHROMYCIN 250 MG TAB (ZITHROMAX) PO ONE (04:30)
== END 2022-04-12 04:29 | disposition home or self-care (01) ==
LOC: EDUNIT# 04:09 → ER 04:11
DX: H66.92 Otitis media, unspecified, left ear (principal); Z88.0 Allergy status to penicillin; Z28.310 Unvaccinated for COVID-19
CPT/HCPCS: 99284

== ENCOUNTER 2022-04-13 00:15 | Emergency (ER) | payer MEDICAID ==
[~2022-04-13] VITALS: Ht 170 cm; Wt 57.0 kg
[~2022-04-13 00:15] MED LIST changes: +AZIT500T2 PO
[2022-04-13 00:25] VITALS: BP 154/104
--- NOTE | 2022-04-13 00:35 | ED EENT ---
History of Present Illness General Chief Complaint: Ear Problems Stated Complaint: LEFT SIDE FACE/NECK PAIN Source: patient Exam Limitations: no limitations History of Present Illness Date Seen by Provider: Apr 13, 2022 Time Seen by Provider: 00:25 Initial Comments 21-year-old female who is otherwise healthy presents again for left facial pain. I saw her last night and she had some erythema to her TM on that side with some bulging. Started her on Zithromax. She states the pain has persisted. She has taken a single dose of Zithromax this morning. She is using ibuprofen which only takes the edge of the pain briefly. No fevers or chills, no nausea or vomiting. Pain is sharp stabbing in her left facial region without radiation. No aggravating or relieving factors. Moderate. Allergies and Home Medications Allergies Coded Allergies: diphenhydramine (Verified Allergy, Mild, N/V, 06/28/20) Penicillins (Verified Allergy, Unknown, 06/28/20) red dye (Verified Allergy, Unknown, 06/28/20) Patient Home Medication List Home Medication List Reviewed: Yes Alprazolam (Alprazolam) 0.5 Mg Tablet, 0.5 MG PO PRN PRN for ANXIETY, (Reported) Entered as Reported by: MAURICE KINGSTON on 03/01/20 142 Azithromycin (Zithromax Tri-Ted) 500 Mg Tablet, 500 MG PO DAILY Prescribed by: FIDEL JEAN-BAPTISTE MD on 04/12/22 0423 Buspirone HCl (Buspirone HCl) 5 Mg Tablet, 5 MG PO DAILY, (Reported) Entered as Reported by: MAURICE KINGSTON on 03/01/20 1424 Cyclobenzaprine HCl (Cyclobenzaprine HCl) 10 Mg Tablet, 5-10 MG PO Q8H PRN for SPASMS Prescribed by: PAT EVANS on 10/10/20 1130 Desogestrel-Ethinyl Estradiol (Desogest-Eth Estra 0.15-0.03MG) 1 Each Tablet, 1 EACH PO DAILY, (Reported) Entered as Reported by: MAURICE KINGSTON on 03/01/20 1424 Dicyclomine HCl (Dicyclomine HCl) 10 Mg Capsule, 10 MG PO QIDACHS PRN for abdominal pain Prescribed by: LUIS LUCIANO on 06/28/20 0730 Naproxen (Naprosyn) 500 Mg Tablet, 500 MG PO BID PRN for PAIN-MODERATE (5-7) Prescribed by: LUIS LUCIANO on 06/28/20 0730 Naproxen (Naproxen) 500 Mg Tablet.dr, 500 MG PO BID Prescribed by: MIR GUERRIER on 01/06/22 2350 Review of Systems Review of Systems Constitutional: no symptoms reported Eyes: No Symptoms Reported Ears: No Symptoms Reported Nose: no symptoms reported Mouth: no symptoms reported Throat: no symptoms reported Respiratory: no symptoms reported Cardiovascular: no symptoms reported Gastrointestinal: no symptoms reported Musculoskeletal: other (Left facial pain) Skin: no symptoms reported Neurological: No Symptoms Reported Hematologic/Lymphatic: No Symptoms Reported Immunological/Allergic: no symptoms reported Past Hynxhvh-Pcsivz-Couqcb Hx Patient Social History Tobacco Use?: No Use of E-Cig and/or Vaping dev: No Substance use?: No Alcohol Use?: No Immunizations Up To Date Tetanus Booster (TDap): Less than 5yrs PED Vaccines UTD: Yes First/Initial COVID19 Vaccinat: 12/12 Second COVID19 Vaccination Daniel: 12/12 Seasonal Allergies Seasonal Allergies: Yes Past Medical History Surgery/Hospitalization HX: CHOLECYSTECTOMY, T/A Surgeries: Yes Adenoidectomy, Gallbladder, Tonsillectomy Respiratory: No Cardiac: No 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) Headaches /Migraines Reproductive Disorders: Yes Female Reproductive Disorders: Ovarian Cyst Sexually Transmitted Disease: No HIV/AIDS: No Genitourinary: Yes Bladder Infection Gastrointestinal: Yes (N/V) Gastroesophageal Reflux, Chronic Constipation, Chronic Diarrhea, Gall Bladder Disease Musculoskeletal: No Endocrine: No HEENT: Yes (GLASSES/CONTACTS) Tonsilitis Cancer: No Psychosocial: Yes Sleep Difficulties, Anxiety Integumentary: Yes (ICHTHYOSIS VULGARIS) Blood Disorders: No Adverse Reaction/Blood Tranf: No (N/A) Family Medical History No Pertinent Family Hx Physical Exam Vital Signs Vital Signs - First Documented 04/13/22 00:25 Temp 36.9 Pulse 92 Resp 16 B/P (MAP) 154/104 (121) Height, Weight, BMI Height: 5'6.00" Weight: 121lbs. 0oz. 54.864231yt; 21.00 BMI Method:Actual General Appearance: WD/WN, no apparent distress Eyes: bilateral eye normal inspection, bilateral eye PERRL, bilateral eye EOMI Ears: right ear auricle normal, right ear canal normal, right ear TM normal; left ear other (Left TM is mildly erythematous. Slightly improved from previous exam.) Nose: normal inspection Mouth/Throat: normal mouth inspection, pharynx normal, other (No dental or bony tenderness.) Neck: non-tender, full range of motion, supple, normal inspection Cardiovascular: regular rate, rhythm, no edema, no gallop, no JVD, no murmur Respiratory: chest non-tender, lungs clear, normal breath sounds, no respiratory distress, no accessory muscle use Gastrointestinal: normal bowel sounds, non tender, soft, no organomegaly, no pulsatile mass Neurologic/Psychiatric: alert, normal mood/affect, oriented x 3, other (Normal voice) Skin: normal color, warm/dry Progress/Results/Core Measures Results/Orders Vital Signs/I&O 04/13/22 00:25 Temp 36.9 Pulse 92 Resp 16 B/P (MAP) 154/104 (121) Departure Communication (Admissions) Unclear source of her pain at this time. Again advised her to continue her antibiotics as it may be related to her otitis but this does appear improved from last night's exam. Recommended continued anti-inflammatory medicine. No evidence for submandibular, retropharyngeal infection. No parotid swelling or dental pain. Consideration for possible trigeminal neuralgia however it would be rare in somebody her age. Impression Primary Impression: Left facial pain Disposition: 01 HOME, SELF-CARE Condition: Stable Departure-Patient Inst. Referrals: ELENI BUTLER MD (PCP/Family) Primary Care Physician Patient Instructions: Ear Infection ED Add. Discharge Instructions: Continue ibuprofen or Aleve as needed for pain. Keep taking your antibiotics. Follow-up with your primary doctor for any nonemergent needs. Return to the emergency department for any severe concerns. All discharge instructions reviewed with patient and/or family. Voiced understanding. FIDEL JEAN-BAPTISTE DO Apr 13, 2022 00:35
== END 2022-04-13 00:35 | disposition home or self-care (01) ==
LOC: EDUNIT# 00:15 → ER 00:16
DX: R51.9 Headache, unspecified (principal); Z28.310 Unvaccinated for COVID-19
CPT/HCPCS: 99282

== ENCOUNTER → 2022-12-17 | Outpatient (CLI) | payer MEDICAID ==
--- NOTE | 2022-12-17 11:24 | Diagnostic Imaging Report ---
EXAMINATION: Ultrasound of the left breast. INDICATION: Pain and bruising in the left breast. COMPARISON: There are no prior exams available for comparison. FINDINGS: By history, the patient is and has pain in the 6 o'clock position of the left breast. The ultrasound examination of the area of concern fails to show any discrete solid or cystic mass. There is no sign of an abscess either. IMPRESSION: There is no evidence for malignancy or for an acute abnormality. Clinical followup is recommended. ACR BI-RADS Category 1: Negative. Dictated by: Dictated on workstation # [id number]
== END ==
LOC: RAD 09:08
PROVIDERS: ATTEND Family Medicine
DX: N63.20 Unspecified lump in the left breast, unspecified quadrant (principal); O26.899 Other specified pregnancy related conditions, unspecified trimester; Z3A.00 Weeks of gestation of pregnancy not specified

== ENCOUNTER 2023-04-23 01:59 | Emergency (ER) | payer MEDICAID ==
[~2023-04-23] VITALS: Ht 167 cm; Wt 69.0 kg
[~2023-04-23 01:59] MED LIST changes: +DICY-11 PO; -DICY10CA12 PO
[2023-04-23 02:17] VITALS: BP 107/82
--- NOTE | 2023-04-23 02:53 | ED General ---
General Chief Complaint: Abdominal/GI Problems Stated Complaint: VOMITING/DIARRHEA 30 WKS PREG Nursing Triage Note: PATIENT COMPLAINT OF NAUSEA FOR A FEW DAYS, STATES VOMITTING/DIARRHEA STARTED 0100 TODAY. PATIENT STATES SIGNIFICANT OTHER DIAGNOSED WITH COVID TODAY. STATES LIVE TOGETHER. Source of Information: Patient Exam Limitations: No Limitations History of Present Illness Date Seen by Provider: Apr 23, 2023 Time Seen by Provider: 02:53 Initial Comments Patient is a 22-year-old G1, P0 who presents to the emergency room today with a chief complaint of nausea over the last couple of days, vomiting and diarrhea onset about 1:00 this morning. She has not taken any medications for her s ymptoms. She denies fevers or chills. She has a sore throat due to vomiting. Her fianc was diagnosed with COVID earlier today and they live together. She has not taken any medication for her sore throat. She describes what sounds like heartburn, discomfort in her throat, upper chest. She does not take any daily medications. Approx 30wk , Her care is through Dr. LEMUS. Estimated due date is July 03, 2023. Denies dysuria, urgency or frequency. No abnormal vaginal discharge or bleeding. Denies blood in her emesis or stool. Timing/Duration: 1-2 Days Severity: Mild Associated Systoms: Nausea/Vomiting, Other (diarrhea; heartburn) Allergies and Home Medications Allergies Coded Allergies: diphenhydramine (Verified Allergy, Mild, N/V, 06/28/20) Penicillins (Verified Allergy, Unknown, 06/28/20) red dye (Verified Allergy, Unknown, 06/28/20) Patient Home Medication List Home Medication List Reviewed: Yes Alprazolam (Alprazolam) 0.5 Mg Tablet, 0.5 MG PO PRN PRN for ANXIETY, (Reported) Entered as Reported by: MAURICE KINGSTON on 03/01/20 142 Azithromycin (Zithromax Tri-Ted) 500 Mg Tablet, 500 MG PO DAILY Prescribed by: FIDEL JEAN-BAPTISTE MD on 04/12/22 0423 Buspirone HCl (Buspirone HCl) 5 Mg Tablet, 5 MG PO DAILY, (Reported) Entered as Reported by: MAURICE KINGSTON on 03/01/20 1424 Cyclobenzaprine HCl (Cyclobenzaprine HCl) 10 Mg Tablet, 5-10 MG PO Q8H PRN for SPASMS Prescribed by: PAT EVANS on 10/10/20 1130 Desogestrel-Ethinyl Estradiol (Desogest-Eth Estra 0.15-0.03MG) 1 Each Tablet, 1 EACH PO DAILY, (Reported) Entered as Reported by: MAURICE KINGSTON on 03/01/20 1424 Dicyclomine HCl (Dicyclomine HCl) 10 Mg Capsule, 10 MG PO QIDACHS PRN for abdominal pain Prescribed by: LUIS LUCIANO on 06/28/20 0730 Naproxen (Naprosyn) 500 Mg Tablet, 500 MG PO BID PRN for PAIN-MODERATE (5-7) Prescribed by: LUIS LUCIANO on 06/28/20 0730 Naproxen (Naproxen) 500 Mg Tablet.dr, 500 MG PO BID Prescribed by: MIR GUERRIER on 01/06/22 2350 Ondansetron (Ondansetron Odt) 4 Mg Tab.rapdis, 4 MG PO Q8H PRN for NAUSEA/VOMITING Prescribed by: LUIS LUCIANO on 04/23/23 0412 Review of Systems Review of Systems Constitutional: see HPI EENTM: throat pain Respiratory: no symptoms reported Cardiovascular: no symptoms reported Gastrointestinal: diarrhea, vomiting Genitourinary: no symptoms reported : Yes Expected Date of Delivery: Jul 03, 2023 Musculoskeletal: no symptoms reported Skin: no symptoms reported Psychiatric/Neurological: No Symptoms Reported Past Udnsiok-Ahkqtp-Fpchau Hx Immunizations Up To Date Tetanus Booster (TDap): Less than 5yrs PED Vaccines UTD: Yes Influenza Vaccine Up-to-Date: No; Not Current First/Initial COVID19 Vaccinat: 12/12 Second COVID19 Vaccination Daniel: 12/12 Third COVID19 Vaccination Date: 12/12 Seasonal Allergies Seasonal Allergies: Yes Past Medical History Surgery/Hospitalization HX: CHOLECYSTECTOMY, T/A Surgeries: Yes Adenoidectomy, Gallbladder, Tonsillectomy Respiratory: No Cardiac: No 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) Headaches /Migraines Reproductive Disorders: Yes Female Reproductive Disorders: Ovarian Cyst Sexually Transmitted Disease: No HIV/AIDS: No Genitourinary: Yes Bladder Infection Gastrointestinal: Yes (N/V) Gastroesophageal Reflux, Chronic Constipation, Chronic Diarrhea, Gall Bladder Disease Musculoskeletal: No Endocrine: No HEENT: Yes (GLASSES/CONTACTS) Tonsilitis Cancer: No Psychosocial: Yes Sleep Difficulties, Anxiety Integumentary: Yes (ICHTHYOSIS VULGARIS) Blood Disorders: No Adverse Reaction/Blood Tranf: No (N/A) Family Medical History No Pertinent Family Hx Physical Exam Vital Signs Vital Signs - First Documented 04/23/23 02:17 Temp 36.9 Pulse 109 Resp 18 B/P (MAP) 107/82 (90) Pulse Ox 98 O2 Delivery Room Air Capillary Refill : Less Than 3 Seconds Height, Weight, BMI Height: 5'6.00" Weight: 121lbs. 0oz. 54.047530de; 24.00 BMI Method:Actual General Appearance: No Apparent Distress, WD/WN Eyes: Bilateral Eye Normal Inspection, Bilateral Eye PERRL, Bilateral Eye EOMI HEENT: TMs Normal, Pharynx Normal, Moist Mucous Membranes Neck: Normal Inspection Respiratory: Lungs Clear, Normal Breath Sounds, No Accessory Muscle Use, No Respiratory Distress Cardiovascular: Regular Rate, Rhythm, Normal Peripheral Pulses Gastrointestinal: Soft, Other (gravid NT) Extremity: Normal Capillary Refill, Normal Inspection, Normal Range of Motion, Non Tender, No Pedal Edema Neurologic/Psychiatric: Alert, Oriented x3, No Motor/Sensory Deficits, Normal Mood/Affect, wind turbine mechanic II-XII Norm as Tested Skin: Normal Color, Warm/Dry Progress/Results/Core Measures Suspected Sepsis SIRS Temperature: Pulse: 109 Respiratory Rate: 18 Blood Pressure 107 /82 Mean: 90 Results/Orders Lab Results Laboratory Tests Test 04/23/23 03:10 Range/Units SARS-CoV-2 RNA (RT-PCR) Not Detected Not Detecte My Orders Orders - LUIS LUCIANO MD Heart Tones (04/23/23 02:59) Ondansetron Oral Dissolve Tab (Ondanset (04/23/23 02:59) Covid 19 Inhouse Test (04/23/23 02:59) Rx-Ondansetron Po (Rx-Zofran Po) (04/23/23 04:08) Vital Signs/I&O 04/23/23 02:17 Temp 36.9 Pulse 109 Resp 18 B/P (MAP) 107/82 (90) Pulse Ox 98 O2 Delivery Room Air Capillary Refill : Less Than 3 Seconds Blood Pressure Mean: 90 Progress Note : Time: 04:09 Progress Note Patient seen and evaluated by me, evaluation today includes history and physical exam. Pertinent physical exam findings well-developed well-nourished female in no acute distress. Gravid uterus, nontender. Stable vital signs. heart tones present, 160s. Patient is primarily concerned with COVID testing. Differential diagnosis includes acute gastroenteritis, nonspecific viral syndrome, COVID. COVID test returned negative. Patient is treated with 8 mg of ODT Zofran. She has significant improvement in her nausea. Recommended that she should likely mask while in public. She may end up turning COVID-positive as she lives with her COVID-positive boyfriend. Advised follow-up with her [employer] DEVEL[employer], return precautions provided in both verbal and written format. All questions are sought and answered. Patient is improved at discharge Departure Impression Primary Impression: Gastroenteritis Additional Impression: 30 weeks gestation of Disposition: HOME, SELF-CARE Condition: Improved Departure-Patient Inst. Decision time for Depature: 04:10 Referrals: ODALYS LEMUS CHAD C MD (PCP/Family) Primary Care Physician Patient Instructions: Viral Gastroenteritis, Adult (DC) Add. Discharge Instructions: Drink plenty of fluids to stay well-hydrated. Eat small meals frequently throughout the day. Use the ondansetron/Zofran 4 mg tablets every 6-8 hours as needed for nausea. Please follow-up with Dr. LEMUS as scheduled. Return to the emergency department for fever, worsening vomiting not controlled by medication, shortness of breath or any other emergent, concerning symptoms. You should be aware that you may actually have a positive COVID test in the coming few days as you have been in close contact with a COVID-positive partner. Scripts Ondansetron (Ondansetron Odt) 4 Mg Tab.rapdis 4 MG PO Q8H PRN for NAUSEA/VOMITING, #12 TAB 0 Refills Prov: LUIS LUCIANO MD 04/23/23 Copy Copies To 1: ODALYS LEMUS DO Copies To 2: ELENI BUTLER MD, KATHRYN M MD Apr 23, 2023 02:53
[2023-04-23] MEDS ORDERED: ONDANSETRON 4 MG ORAL DISSOLVE TABLET PO STA (02:59)
[2023-04-23] MEDS ORDERED: RX-ONDANSETRON 4 MG ODT (ZOFRAN) PPK #4 PO STA (04:08)
[2023-04-23] MEDS ORDERED: ONDA4TAB11 PO (04:12)
== END 2023-04-23 04:28 | disposition home or self-care (01) ==
LOC: EDUNIT# 01:59 → ER 02:02
DX: O99.613 Diseases of the digestive system complicating pregnancy, third trimester (principal); K52.9 Noninfective gastroenteritis and colitis, unspecified; Z3A.30 30 weeks gestation of pregnancy
CPT/HCPCS: 87636